=== PATIENT | female | born 1980 | race African-American/Black ===

== ENCOUNTER 2019-09-11 16:26 | Inpatient (IN) | payer MEDICAID, SELFPAY ==
--- NOTE | ~2019-09-11 | XR_ITS ---
XR chest 1V portable 09/11/2019 17:37 Indication: Chest pain. Sickle cell disease. Procedure: AP portable chest Comparison: Comparison to multiple prior studies sequentially, with oldest reviewed study dated 05/31. Findings: Cardiomegaly. Port catheter tip in the SVC. No acute focal pneumonia, edema or effusion. Chronic interstitial changes in the lung bases. No acute osseous abnormality. Impression: 1: No acute cardiopulmonary disease. No significant change from prior studies. Reviewed, dictated and finalized at location A. Impression: 1: No acute cardiopulmonary disease. No significant change from prior studies.
[2019-09-11 16:47] VITALS: BP 148/90; PULSE 69; RESP 20; TEMP 36.7; O2SAT 100
--- NOTE | 2019-09-11 16:57 | ECG_ITS ---
Measurements Intervals [place] Rate: 69 P: 52 HI: 206 QRS: 28 QRSD: 97 T: 33 QT: 433 QTc: 466 Interpretive Statements SINUS RHYTHM NORMAL ECG Electronically Signed On 09-12-2019 7:08:18 CDT by Ata Ford D.O.
[2019-09-11] MEDS: HYDROMORPHONE HCL 1 MG/ML INJ 2 MG IV PUSH ×4 (17:03→23:31)
[2019-09-11] MEDS: PROCHLORPERAZINE EDISYLATE 10 MG/2 ML VIAL IV PUSH (17:04)
[2019-09-11] MEDS: LACTATED RINGERS 1,000 ML 999 ML IV CONT ×2 (17:04→18:11)
--- NOTE | 2019-09-11 17:10 | ED.GENADULT ---
HPI - General Adult General Chief complaint: Unspecified <KERMIT Senior Last Filed: 09/11/19 18:53> Stated complaint: Sickle Cell Crisis <KERMIT Senior Last Filed: 09/11/19 18:53> Time Seen by Provider: 09/11/19 16:43 <KERMIT Senior Last Filed: 09/11/19 18:53> Source: patient <KERMIT Senior Last Filed: 09/11/19 18:53> Mode of arrival: ambulatory <KERMIT Senior Last Filed: 09/11/19 18:53> Limitations: no limitations <KERMIT Senior Last Filed: 09/11/19 18:53> History of Present Illness HPI narrative: Patient is a 39-year-old female who presents noting leg pain and low back pain consistent with her chronic pain crisis secondary to sickle cell disease is followed at [facility] notes that she takes Dilaudid daily and has been doing so without relief. Patient denies any fever chills nausea vomiting urinary symptoms or upper respiratory symptoms. On arrival patient in the room in no distress. <KERMIT Senior Last Filed: 09/11/19 18:53> Related Data Home medications: Home Medications Medication Instructions Recorded Confirmed hydromorphone 8 mg PO Q4H PRN 09/11/19 <KERMIT Senior Last Filed: 09/11/19 18:53> Allergies/adverse reactions: Allergies Allergy/AdvReac Type Severity Reaction Status Date / Time acetaminophen Allergy Mild Rash Verified 06/11/18 21:24 aspirin Allergy Unknown Hives / Verified 06/11/18 21:24 Red Face Fish Containing Products Allergy Unknown Unknown Verified 09/11/19 16:55 ibuprofen Allergy Unknown Unknown Verified 09/11/19 16:55 Penicillins Allergy Unknown Unknown Verified 09/11/19 16:55 shellfish derived Allergy Unknown Unknown Verified 09/11/19 16:55 <KERMIT Senior Last Filed: 09/11/19 18:53> Review of Systems Review of Systems: All systems reviewed & are unremarkable except as noted in HPI and below <KERMIT Senior Last Filed: 09/11/19 18:53> PMFSH Past Medical History Medical History: Medical History (Updated 09/11/19 @ 18:53 by Ryan Guillory PA-C) Port-A-Cath in place Sickle cell disease <Ryan Guillory PA-C - Last Filed: 09/11/19 18:53> Social History Social History: Social History (Updated 09/11/19 @ 17:11 by Ryan Guillory PA-C) Smoking status: Never smoker <Ryan Guillory PA-C - Last Filed: 09/11/19 18:53> Exam Narrative: Exam Narrative: GENERAL: Well-appearing, well-nourished, and in no acute distress. HEAD: Normocephalic, atraumatic. EYES: PERRLA and EOMI. ENT: Nares clear, no rhinorrhea or epistaxis. Mucous membranes moist. Oropharynx without tonsillar hypertrophy exudate or other lesions. NECK: Supple. No adenopathy or masses. CHEST: Clear to auscultation. No respiratory distress. No wheezes rales or rhonchi HEART: Regular rate and rhythm. No murmur heard. Normal peripheral pulses. ABDOMEN: Soft, nontender, nondistende. EXTREMITIES: Normal range of motion. No edema. SKIN: Warm, dry, no rash. NEURO: No focal deficits. Alert and oriented x3. Cranial nerves II through XII grossly intact. Normal speech and gait PSYCH: Normal mood and affect. <Ryan Guillory PA-C - Last Filed: 09/11/19 18:53> Course Course Emergency Course: Patient in the room at this time continued to have pain with slight improvement would like to be placed in hospital for pain management patient without high risk changes in the blood work resting comfortably in the room felt appropriate for in-hospital therapy <Ryan Guillory PA-C - Last Filed: 09/11/19 18:53> Consultations Consultation #1: discussed case with hospitalist who is agreed to accept the patient <Ryan Guillory PA-C - Last Filed: 09/11/19 18:53> Date: 09/11/19 <KERMIT Senior Last Filed: 09/11/19 18:53> Time: 18:52 <KERMIT Senior Last Filed: 09/11/19 18:53> Vital Signs Vital sig
[2019-09-11 17:20] LABS: Basophils Percent Auto 0.5 % (0.2-1.2); Eosinophils Percent Auto 0.4 % (0-4.4); Hematocrit 28.9 % (37.0-47.0); Hemoglobin 9.6 g/dL (12.0-15.0); Immature Granulocyte Absolute 0.03 K/mm3 (0.00-0.031); Immature Granulocyte Percent A 0.4 % (0-0.5); Immature Reticulocyte Fraction 39.6 % (3.0-15.9); Lymphocytes Absolute Auto 1.81 K/mm3 (0.9-3.2); Mean Corpuscular HGB Conc 33.2 g/dl (32-36); Mean Corpuscular Hemoglobin 24.6 pg (26-34); Mean Corpuscular Volume 74.1 fl (80-100); Mean Platelet Volume 10.1 fl (7.4-10.4); Monocytes Absolute Auto 0.9 K/mm3 (0.1-0.6); Monocytes Percent Auto 11.3 % (2.6-8.5); Neutrophils Absolute Auto 5.1 K/mm3 (1.3-6.7); Neutrophils Percent Auto 64.4 % (45.5-73.1); Nucleated Red Blood Cells Absolute Auto 0.1 K/mm3 (0.0-0.012); Platelet Count Result 499 k/mm3 (150-375); Red Cell Distribution Width 20.2 % (11.5-14.5); Reticulocyte Hemoglobin Conten 29.1 pg (28.2-35.7); Reticulocyte Percent 5.25 % (0.7-4.3); White Blood Count 7.9 K/mm3 (4.5-10.0)
[2019-09-11 17:23] LABS: Alanine Aminotransferase 19 U/L (4-35); Albumin Level 4.8 g/dL (3.5-5.1); Alkaline Phosphatase 137 U/L (38-126); Aspartate Amino Transferase 30 U/L (14-36); Bilirubin,Total 1.7 mg/dL (0.2-1.3); Blood Urea Nitrogen 7 mg/dL (7-17); Calcium 9.6 mg/dL (8.4-10.2); Carbon Dioxide 23 mmol/L (22-30); Chloride 106 mmol/L (98-107); Estimated CRCL calculation 122 ml/min; Estimated Glomerular Filt Rate > 60; Glucose 93 mg/dL (65-105); Lactate Dehydrogenase 537 U/L (313-618); Potassium 3.7 mmol/L (3.4-5.0); Sodium 138 mmol/L (137-145)
[2019-09-11 17:24] LABS: Add Urine Microscopic? YES; Appearance Urine Cloudy (Clear); Bacteria Urine 2+ /hpf; Bilirubin Urine Negative (Negative); Blood Urine Negative (Negative); Color Urine Yellow (Yellow); Glucose Urine UA Negative (Negative); Ketones Urine Negative (Negative); Leukocyte Esterase Ur Negative LEU/UL (Negative); Mucus Urine Rare /lpf; Nitrate Urine Negative (Negative); Protein Urine Negative (Negative); RBC Urine 0-2 /hpf (0-2); Specific Grav Ur 1.013 (1.001-1.035); Squamous Epithelial Cell Urine Many /hpf (Few); WBC Urine 0-3 /hpf
--- NOTE | 2019-09-11 17:54 | PC.NURSE ---
Pt called out and stated she was in pain. Informed RODRIGO [place] of this
[2019-09-11 19:26] VITALS: BP 130/80; PULSE 66; RESP 20; O2SAT 100
[2019-09-11 20:00] VITALS: BP 155/81; PULSE 52; RESP 20; TEMP 36.4; O2SAT 100
--- NOTE | 2019-09-11 20:36 | ADMGEN ---
This patient, Natividad Lowe, was admitted to Medical Room 258-. Patient/family oriented to hospital policies and general routines including ID bracelet, bed and alarms, visiting hours, pain management, procedures, bathroom and other care routines, personal items, smoking policy, room service/diet, and visiting hours. Valuables list has been completed. Information on how to activate the Rapid Response Team has been discussed. Patient/Family are encouraged to report perceived risks to care and to ask questions if they do not understand what they are told or what they should do.
[2019-09-11 20:54] VITALS: BMI 34.7
[2019-09-11] MEDS: FAMOTIDINE 20 MG/2 ML VIAL IV PUSH (21:08)
[2019-09-11] MEDS: HYDROMORPHONE HCL 1 MG/ML INJ IV PUSH (21:13)
[2019-09-11] MEDS: LACTATED RINGERS 1,000 ML 125 ML IV CONT (21:13)
[2019-09-12] VITALS: BP 123/65; PULSE 65; RESP 18; TEMP 36.3; O2SAT 97
[2019-09-12] MEDS: HYDROMORPHONE HCL 1 MG/ML INJ 2 MG IV PUSH ×3 (01:43→05:37)
[2019-09-12 04:00] VITALS: BP 133/77; PULSE 56; RESP 20; TEMP 36.1; O2SAT 96
[2019-09-12] MEDS: LACTATED RINGERS 1,000 ML 125 ML IV CONT ×3 (04:50→20:09)
--- NOTE | 2019-09-12 06:30 | PM.IMHP ---
H&P: HPI History of Present Illness Chief complaint: Sickle cell pain crisis Narrative: Date and time of patient contact: 09/12/2019 at 6:30 a.m. Natividad Lowe is a 39 year old female with a past medical history of sickle cell (SS) disease who presented To the ER with pain in her low back hips and legs consistent with her usual sickle cell crisis. The patient reports that she has been doing extremely well with her sickle cell disease and had not been admitted to hospital at all since October 2017 and has not been evaluated in the ER since May 2018. She reports that she decreased her soda intake from the the greater than 6 sodas a day down to 1 soda a day. Since decreasing her soda intake she has had decreased pain and decreased issues with constipation. She has also incidentally lost a little bit of weight. She reports that her brother due to a gunshot wound within the last 3 days. She thinks that the stress of that situation has contributed to her sickle cell pain. She admits she may not be drinking as much water as usual. She denies any cough, congestion, shortness of breath, chest pain, nausea, vomiting, recent ill contacts, COVID-19 exposure, or other symptoms. Her pain is been unrelenting despite her home Dilaudid. She denies any dysuria or hematuria. Review of Systems Review of Systems: Narrative: 12 systems were reviewed with pertinent positives and negatives per HPI. Except as documented in the HPI, all other systems were reviewed and are negative. [facility] Past Medical History Medical History (Updated 09/12/19 @ 07:50 by Crystal Hernandez DO) Asthma Avascular necrosis of bone of hip Avascular necrosis of bone of shoulder Essential hypertension Moderate pulmonary arterial systolic hypertension Noted on echocardiogram from June 2015 with a RVSP of 53 normal ejection fraction is 64% Sickle cell disease Surgical History Surgical History (Updated 09/12/19 @ 07:27 by Crystal Hernandez DO) History of tubal ligation Hx of tonsillectomy Port-A-Cath in place She originally a Port-A-Cath in place in her left chest that became infected she subsequently had that 1 replaced and now has a port in her right chest since December 2015 Family History Family History (Updated 09/12/19 @ 07:29 by Crystal Hernandez DO) Mother Diabetes mellitus Sickle cell trait Hypertension Father Sickle cell trait Sibling Sickle cell trait Social History Social History (Updated 09/12/19 @ 07:38 by Crystal Hernandez DO) Social History: Smoking status: Never smoker Alcohol intake: never Substance use: never Living arrangements: with family Occupation/Education: student Additional occupation/education comments: 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 Spiritual care concerns: No Meds Home Medications and Allergies Home Medications Medication Instructions Recorded Confirmed Type folic acid 1 mg PO DAILY 09/11/19 09/11/19 History hydromorphone 8 mg PO Q4H PRN 09/11/19 09/11/19 History hydroxyurea (sickle cell) 1,000 mg PO DAILY 09/11/19 09/11/19 History Allergies Allergy/AdvReac Type Severity Reaction Status Date / Time acetaminophen Allergy Mild Rash Verified 06/11/18 21:24 aspirin Allergy Unknown Hives / Verified 06/11/18 21:24 Red Face Fish Containing Products Allergy Unknown Unknown Verified 09/11/19 16:55 ibuprofen Allergy Unknown Unknown Verified 09/11/19 16:55 Penicillins Allergy Unknown Unknown Verified 09/11/19 16:55 shellfish derived Allergy Unknown Unknown Verified 09/11/19 16:55 Vital Signs Vital Signs - 24 hr 09/11/19 16:47 09/11/19 19:26 09/11/19 20:00 Temperature 98.0 F 97.5 F L Pulse Rate 69 66 52 L Respiratory Rate 20 20 20 Blood Pressure 148/90 H 130/80 155/81 H Pulse Oximetry 100 100 100 09/12/19 00:00 09/12/19 04:00 Temperature 97.3 F L 96.9 F L Pulse Rate 65 56 L Respiratory Rate 18 20 Blood Pressure 123/65 133/7
[2019-09-12 07:13] LABS: Basophils Absolute Auto 0.1 K/mm3 (0.0-0.1); Basophils Percent Auto 0.8 % (0.2-1.2); Eosinophils Absolute Auto 0.2 K/mm3 (0-0.3); Eosinophils Percent Auto 1.9 % (0-4.4); Hematocrit 25.6 % (37.0-47.0); Hemoglobin 8.5 g/dL (12.0-15.0); Immature Granulocyte Absolute 0.03 K/mm3 (0.00-0.031); Immature Granulocyte Percent A 0.4 % (0-0.5); Lymphocytes Absolute Auto 3.21 K/mm3 (0.9-3.2); Lymphocytes Percent Auto 41.3 % (18.3-44.2); Mean Corpuscular HGB Conc 33.2 g/dl (32-36); Mean Corpuscular Hemoglobin 24.9 pg (26-34); Mean Corpuscular Volume 74.9 fl (80-100); Mean Platelet Volume 9.7 fl (7.4-10.4); Monocytes Absolute Auto 1.1 K/mm3 (0.1-0.6); Neutrophils Absolute Auto 3.2 K/mm3 (1.3-6.7); Neutrophils Percent Auto 41.6 % (45.5-73.1); Nucleated Red Blood Cells Absolute Auto 0.1 K/mm3 (0.0-0.012); Nucleated Red Blood Cells Perc 0.8 % (0.0-0.2); Platelet Count Result 440 k/mm3 (150-375); Red Blood Count 3.42 M/mm3 (4.2-5.4); Red Cell Distribution Width 19.6 % (11.5-14.5); White Blood Count 7.8 K/mm3 (4.5-10.0)
[2019-09-12 07:21] LABS: Blood Urea Nitrogen 6 mg/dL (7-17); Calcium 8.9 mg/dL (8.4-10.2); Carbon Dioxide 26 mmol/L (22-30); Chloride 103 mmol/L (98-107); Estimated CRCL calculation 120 ml/min; Estimated Glomerular Filt Rate > 60; Glucose 77 mg/dL (65-105); Potassium 3.6 mmol/L (3.4-5.0); Sodium 136 mmol/L (137-145)
[2019-09-12 07:36] LABS: Bilirubin,Total 1.8 mg/dL (0.2-1.3)
[2019-09-12] MEDS: HYDROMORPHONE HCL 1 MG/ML INJ 3 MG IV PUSH ×6 (08:03→23:00)
[2019-09-12] MEDS: HYDROXYUREA (*CHEMO) 500 MG CAPSULE 1000 MG PO (08:04)
[2019-09-12] MEDS: FOLIC ACID 1 MG TABLET PO (08:04)
[2019-09-12 10:00] VITALS: BP 143/75; PULSE 74; RESP 16; TEMP 36.2; O2SAT 100
--- NOTE | 2019-09-12 13:12 | PM.IMPN ---
Progress Note: A&P Assessment and Plan (1) Sickle cell pain crisis: Code(s): D57.00 - Hb-SS disease with crisis, unspecified Status: Acute Assessment and Plan: Patient complains of pain in her low back that extends laterally and in bilateral legs. Her pain is better controlled today and she rates it 8/10. There is no evidence of acute chest syndrome. Percent retic is elevated. Total bilirubin is elevated. Continue IV Dilaudid 3 mg Q3H for pain. Narcan has been ordered. Wean down pain medication as soon as clinically appropriate Continue oral Benadryl as needed Continue IV fluids Continue to monitor CBC and retic count. Continue folic acid and hydroxyurea (2) Essential hypertension: Code(s): I10 - Essential (primary) hypertension Status: Acute Assessment and Plan: Patient has a history of hypertension but is not on any antihypertensive medications. Blood pressures were elevated at presentation. Upon review today, blood pressures are acceptable in normal range. Continue to monitor blood pressures (3) Moderate pulmonary arterial systolic hypertension: Code(s): I27.21 - Secondary pulmonary arterial hypertension Status: Acute Assessment and Plan: On review of echo from June 2015, she was noted to have a right ventricular systolic pressure of 53 mmHg. Her EF was 64%. Apnea link has been ordered for tonight to evaluate for EMMANUEL as cause of pulmonary HTN She will also benefit from formal outpatient sleep study (4) DVT prophylaxis: Code(s): Z29.9 - Encounter for prophylactic measures, unspecified Status: Acute Assessment and Plan: Prophylactic Lovenox was ordered for DVT prophylaxis, however patient refused injection. Will add SCDs for prophylaxis as pharmacologic was refused Subjective Date/time seen: 09/12/19 13:12 Interval history: Date of service: 09/12/2019 She reports she is feeling well today and her pain is more controlled at this time. She continues to endorse pain that spreads laterally across her lower back and down to bilateral legs. She describes this pain as an achiness and rates 8/10. She denies pain in her upper extremities, chest, or abdomen. She denies headache. She has no shortness of breath, LEWIS, or palpitations. She has been ambulating to the restroom without difficulty and this does not cause any increased pain. She is urinating regularly without dysuria or hematuria. She had a regular soft, formed bowel movement this morning. Her appetite has been good. She did not sleep last night as she was in pain but was able to get some rest this morning. Review of Systems Review of Systems: Narrative: A 12 point review of systems was reviewed with pertinent positives and negatives as per HPI. Exam Narrative: Exam Narrative: Ms. Lowe is examined alone today. She is a 39-year-old female who is lying supine in bed. She appears comfortable and is in no acute respiratory distress. HR 56, BP 133/77, R 20, T 96.9?, 96% on room air Neuro: awake, alert and oriented x4, speech clear, no focal neuro deficits noted HEENMT: normocephalic, atraumatic, EOMI, sclerae anicteric, moist oral mucosa, normal oropharynx Neck: supple, no lymphadenopathy Chest: Port-A-Cath in place on right chest wall Respiratory: clear to auscultation bilaterally, normal respiratory effort without accessory muscle use Cardio: regular rate, regular rhythm, normal S1 and S2 Abdomen: normal to inspection, slightly protuberant, normoactive bowel sounds, soft, nontender to palpation Back: Normal to inspection, no paraspinal tenderness, nontender to palpation Extremities: BLE without edema, erythema, or pain to palpation, dorsal pedis pulses palpable bilaterally, brisk capillary refill Skin: no rashes or lesions, warm and dry Psych: Pleasant and cooperative, normal mood and affect, judgment and insight intact Objective Data Vital Signs
[2019-09-12 14:00] VITALS: BP 104/54; PULSE 67; RESP 15; TEMP 36.8; O2SAT 100
[2019-09-12] MEDS: CENTRAL LINE FLUSH 10 ML IV PUSH ×2 (14:02→20:09)
[2019-09-12 19:06] VITALS: BP 112/60; PULSE 75; RESP 18; TEMP 36.7; O2SAT 100
[2019-09-12 20:00] VITALS: BP 154/76; PULSE 71; RESP 20; TEMP 36.2; O2SAT 100
[2019-09-13] MEDS: HYDROMORPHONE HCL 1 MG/ML INJ 3 MG IV PUSH ×7 (02:05→20:07)
[2019-09-13 04:00] VITALS: BP 144/82; PULSE 65; RESP 18; TEMP 36; O2SAT 100
[2019-09-13] MEDS: LACTATED RINGERS 1,000 ML 125 ML IV CONT (05:01)
[2019-09-13] MEDS: CENTRAL LINE FLUSH 10 ML IV PUSH ×3 (05:05→23:05)
[2019-09-13 05:45] LABS: Basophils Absolute Auto 0.1 K/mm3 (0.0-0.1); Basophils Percent Auto 0.8 % (0.2-1.2); Eosinophils Absolute Auto 0.2 K/mm3 (0-0.3); Eosinophils Percent Auto 2.9 % (0-4.4); Hematocrit 26.3 % (37.0-47.0); Hemoglobin 8.7 g/dL (12.0-15.0); Immature Granulocyte Absolute 0.03 K/mm3 (0.00-0.031); Immature Granulocyte Percent A 0.4 % (0-0.5); Immature Reticulocyte Fraction 33.3 % (3.0-15.9); Lymphocytes Absolute Auto 2.79 K/mm3 (0.9-3.2); Lymphocytes Percent Auto 37.2 % (18.3-44.2); Mean Corpuscular HGB Conc 33.1 g/dl (32-36); Mean Corpuscular Hemoglobin 24.8 pg (26-34); Mean Corpuscular Volume 74.9 fl (80-100); Mean Platelet Volume 9.5 fl (7.4-10.4); Monocytes Percent Auto 13.2 % (2.6-8.5); Neutrophils Absolute Auto 3.4 K/mm3 (1.3-6.7); Neutrophils Percent Auto 45.5 % (45.5-73.1); Nucleated Red Blood Cells Absolute Auto 0.1 K/mm3 (0.0-0.012); Nucleated Red Blood Cells Perc 1.2 % (0.0-0.2); Platelet Count Result 465 k/mm3 (150-375); Red Blood Count 3.51 M/mm3 (4.2-5.4); Red Cell Distribution Width 19.8 % (11.5-14.5); Reticulocyte Hemoglobin Conten 28.6 pg (28.2-35.7); Reticulocyte Percent 6.19 % (0.7-4.3); Reticulocytes Absolute 0.22 B/L (32.2-175.7); White Blood Count 7.5 K/mm3 (4.5-10.0)
[2019-09-13 06:01] LABS: Blood Urea Nitrogen 8 mg/dL (7-17); Calcium 8.6 mg/dL (8.4-10.2); Carbon Dioxide 28 mmol/L (22-30); Chloride 101 mmol/L (98-107); Estimated CRCL calculation 120 ml/min; Estimated Glomerular Filt Rate > 60; Glucose 90 mg/dL (65-105); Potassium 3.5 mmol/L (3.4-5.0); Sodium 135 mmol/L (137-145)
[2019-09-13] MEDS: FOLIC ACID 1 MG TABLET PO (08:02)
[2019-09-13] MEDS: HYDROXYUREA (*CHEMO) 500 MG CAPSULE 1000 MG PO (08:02)
--- NOTE | 2019-09-13 12:29 | PM.IMPN ---
Progress Note: A&P Assessment and Plan (1) Sickle cell pain crisis: Code(s): D57.00 - Hb-SS disease with crisis, unspecified Status: Acute Assessment and Plan: Patient complains of pain in her low back that extends laterally. Her leg pain has improved. She rates her pain as 8/10 but states that is improving. There is no evidence of acute chest syndrome. Percent retic is elevated. Total bilirubin is elevated. Continue IV Dilaudid 3 mg Q3H for pain. Narcan has been ordered. Patient is hopeful for discharge tomorrow, therefore will decrease to 2 mg IV Dilaudid this evening, and continue to wean as appropriate. Continue oral Benadryl as needed Discontinue IV fluids as patient has been adequately rehydrated and tolerating oral intake Continue to monitor CBC and retic count. Continue folic acid and hydroxyurea (2) Essential hypertension: Code(s): I10 - Essential (primary) hypertension Status: Acute Assessment and Plan: Patient has a history of hypertension but is not on any antihypertensive medications. Blood pressures were elevated at presentation and readings today are also elevated at 144/82. These increases may be related to pain. Continue to monitor blood pressures Consider addition of hydralazine if readings remain elevated (3) Moderate pulmonary arterial systolic hypertension: Code(s): I27.21 - Secondary pulmonary arterial hypertension Status: Acute Assessment and Plan: On review of echo from June 2015, she was noted to have a right ventricular systolic pressure of 53 mmHg. Her EF was 64%. Apnea link was performed on 09/13/2019 which put her in the normal range and at low risk for suspected pathologic breathing disorder. She may still benefit from formal outpatient sleep study as she endorses snoring and daytime fatigue. These findings will require outpatient follow-up with primary care provider. (4) DVT prophylaxis: Code(s): Z29.9 - Encounter for prophylactic measures, unspecified Status: Acute Assessment and Plan: Prophylactic Lovenox was ordered for DVT prophylaxis, however patient refused injection. Continue SCDs for prophylaxis as pharmacologic was refused Subjective Date/time seen: 09/13/19 12:29 Interval history: Date of service: 09/13/2019 She reports she is feeling better today. She continues to rate her pain as an 8/10, but states that it is improving. Pain is now significant only in her back, and her leg pain has improved. She continues to deny upper extremity pain, abdominal pain, or chest pain. She has been ambulating in her room and in the halls and reports she is doing well. Walking does not seem to exacerbate her pain. She is eating well. She slept well last night. She had a regular bowel movement this morning. She denies urinary symptoms. Review of Systems Review of Systems: Narrative: A 12 point review of systems was reviewed with pertinent positives and negatives as per HPI. Exam Narrative: Exam Narrative: Ms. Lowe is examined alone today. She is a 39-year-old female who is lying supine in bed. She appears comfortable and is in no acute respiratory distress. HR sixty-five, BP 144/82, RR 18, T 96.8?, 100% on room air Neuro: awake, alert and oriented x4, speech clear, no focal neuro deficits noted HEENMT: normocephalic, atraumatic, EOMI, sclerae anicteric, moist oral mucosa, normal oropharynx Neck: supple, no lymphadenopathy Chest: Port-A-Cath in place on right chest wall Respiratory: clear to auscultation bilaterally, normal respiratory effort without accessory muscle use Cardio: regular rate, regular rhythm, normal S1 and S2 Abdomen: normal to inspection, slightly protuberant, normoactive bowel sounds, soft, nontender to palpation Back: Normal to inspection, no paraspinal tenderness, nontender to palpation Extremities: BLE without edema, erythema, or pain to palpation, dorsal pedis
[2019-09-13 15:00] VITALS: BP 130/68; PULSE 64; RESP 16; TEMP 37.1; O2SAT 100
[2019-09-13 22:00] VITALS: BP 137/77; PULSE 76; RESP 18; TEMP 36.6; O2SAT 100
[2019-09-13] MEDS: HYDROMORPHONE HCL 1 MG/ML INJ 2 MG IV PUSH (23:00)
[2019-09-14] MEDS: HYDROMORPHONE HCL 1 MG/ML INJ 3 MG IV PUSH (01:02)
[2019-09-14] MEDS: HYDROMORPHONE HCL 4 MG TABLET 8 MG PO (04:35)
[2019-09-14 06:00] VITALS: BP 130/73; PULSE 76; RESP 18; TEMP 36.6; O2SAT 100
[2019-09-14] MEDS: CENTRAL LINE FLUSH 10 ML IV PUSH ×3 (06:15→22:43)
[2019-09-14] MEDS: HYDROMORPHONE HCL 1 MG/ML INJ 2 MG IV PUSH (06:29)
[2019-09-14 06:32] LABS: Basophils Absolute Auto 0.1 K/mm3 (0.0-0.1); Basophils Percent Auto 0.8 % (0.2-1.2); Eosinophils Absolute Auto 0.3 K/mm3 (0-0.3); Hematocrit 26.8 % (37.0-47.0); Hemoglobin 8.7 g/dL (12.0-15.0); Immature Granulocyte Absolute 0.03 K/mm3 (0.00-0.031); Immature Granulocyte Percent A 0.5 % (0-0.5); Lymphocytes Absolute Auto 2.46 K/mm3 (0.9-3.2); Lymphocytes Percent Auto 38.3 % (18.3-44.2); Mean Corpuscular HGB Conc 32.5 g/dl (32-36); Mean Corpuscular Hemoglobin 24.3 pg (26-34); Mean Corpuscular Volume 74.9 fl (80-100); Mean Platelet Volume 9.5 fl (7.4-10.4); Monocytes Absolute Auto 0.9 K/mm3 (0.1-0.6); Monocytes Percent Auto 13.2 % (2.6-8.5); Neutrophils Absolute Auto 2.8 K/mm3 (1.3-6.7); Neutrophils Percent Auto 43.2 % (45.5-73.1); Nucleated Red Blood Cells Absolute Auto 0.1 K/mm3 (0.0-0.012); Nucleated Red Blood Cells Perc 1.1 % (0.0-0.2); Platelet Count Result 480 k/mm3 (150-375); Red Blood Count 3.58 M/mm3 (4.2-5.4); Red Cell Distribution Width 19.1 % (11.5-14.5); White Blood Count 6.4 K/mm3 (4.5-10.0)
[2019-09-14 06:44] LABS: Alanine Aminotransferase 13 U/L (4-35); Albumin Level 4.1 g/dL (3.5-5.1); Alkaline Phosphatase 101 U/L (38-126); Aspartate Amino Transferase 22 U/L (14-36); Bilirubin,Total 1.3 mg/dL (0.2-1.3); Blood Urea Nitrogen 7 mg/dL (7-17); Calcium 8.8 mg/dL (8.4-10.2); Carbon Dioxide 29 mmol/L (22-30); Chloride 101 mmol/L (98-107); Estimated CRCL calculation 141 ml/min; Estimated Glomerular Filt Rate > 60; Glucose 83 mg/dL (65-105); Potassium 3.6 mmol/L (3.4-5.0); Sodium 134 mmol/L (137-145)
--- NOTE | 2019-09-14 07:46 | PC.NURSE ---
Patient crying and asking to speak to hospitalist. Jeanette on the floor and is in to see patient.
--- NOTE | 2019-09-14 07:59 | PM.IMPN ---
Progress Note: A&P Assessment and Plan (1) Sickle cell pain crisis: Code(s): D57.00 - Hb-SS disease with crisis, unspecified Status: Acute Assessment and Plan: Patient complains of pain in her low back that extends laterally to her bilateral legs. There is no evidence of acute chest syndrome. Percent retic is elevated. Total bilirubin initially elevated but has declined to 1.3. Patient required increased IV pain medication overnight as her pain had been uncontrolled. She had previously been decreased from 3 mg to 2 mg IV Dilaudid as she was hopeful to discharge today, however her pain is now 10/10. Resume IV Dilaudid 3 mg Q4H for pain. Narcan has been ordered Wean as soon as clinically appropriate. Continue oral Benadryl as needed IV fluids discontinued on 09/13/2019 as patient has been adequately rehydrated and tolerating oral intake Continue to monitor CBC and retic count. Continue folic acid and hydroxyurea Continue supportive therapy including heating pad for back, positional changes, and ambulation (2) Emotional stress: Code(s): R45.7 - State of emotional shock and stress, unspecified Status: Acute Assessment and Plan: Patient is very tearful upon my visit today. I spent extensive time talking with her about the recent loss of her brother who was murdered just several days ago. She feels strongly that her emotional stress and grief are contributing to her pain symptoms. She tells me that she is trying to be strong for her family, and therefore believes she is trying to bennett her healing process and is putting too much pressure on herself. She denies depression or suicidal ideation. I encouraged the patient to take time to focus on her own healing today. I encouraged her to identify someone she could talk to about her emotional pain, and she plans to call her intelligence officer basic today. (3) Essential hypertension: Code(s): I10 - Essential (primary) hypertension Status: Acute Assessment and Plan: Patient has a history of hypertension but is not on any antihypertensive medications. Blood pressures were elevated at presentation but have improved. Initial elevated readings were likely related to pain. Blood pressure evaluated today and stable at 130/73. Continue to monitor blood pressures (4) Moderate pulmonary arterial systolic hypertension: Code(s): I27.21 - Secondary pulmonary arterial hypertension Status: Acute Assessment and Plan: On review of echo from June 2015, she was noted to have a right ventricular systolic pressure of 53 mmHg. Her EF was 64%. Apnea link was performed on 09/13/2019 which put her in the normal range and at low risk for suspected pathologic breathing disorder. She may still benefit from formal outpatient sleep study as she endorses snoring and daytime fatigue. These findings will require outpatient follow-up with primary care provider. (5) DVT prophylaxis: Code(s): Z29.9 - Encounter for prophylactic measures, unspecified Status: Acute Assessment and Plan: Prophylactic Lovenox was ordered for DVT prophylaxis, however patient refused injection. Continue SCDs for prophylaxis as pharmacologic was refused Subjective Date/time seen: 09/14/19 07:59 Interval history: Date of service: 09/14/2019 I was called to the patient's room today because she was very upset and had been crying for a good portion of the morning. Her pain had become uncontrolled throughout the night and she required more pain medications and she states she is still very uncomfortable. She is rating her pain as a 10/10 now. Her pain is in her back and her legs. She is concerned because she very much wants to go home to be with her family, but she does not feel that she can go home when her pain is this significant. She feeling this way has caused her to have decreased appetite. She was not able to sleep well last night due to p
[2019-09-14 08:12] LABS: Immature Reticulocyte Fraction 22.7 % (3.0-15.9); Reticulocyte Hemoglobin Conten 26.4 pg (28.2-35.7); Reticulocyte Percent 4.65 % (0.7-4.3); Reticulocytes Absolute 0.16 B/L (32.2-175.7)
[2019-09-14] MEDS: HYDROXYUREA (*CHEMO) 500 MG CAPSULE 1000 MG PO (09:08)
[2019-09-14] MEDS: FOLIC ACID 1 MG TABLET PO (09:08)
[2019-09-14] MEDS: HYDROMORPHONE HCL 2 MG/ML VIAL 3 MG IV PUSH ×4 (10:37→22:49)
[2019-09-14 14:00] VITALS: BP 125/69; PULSE 73; RESP 16; TEMP 36.9; O2SAT 100
--- NOTE | 2019-09-14 14:48 | PC.NURSE ---
Nursing care given over to Sheila Spence RN. Report given.
[2019-09-14 22:00] VITALS: BP 129/76; PULSE 80; RESP 18; TEMP 36.6; O2SAT 100
[2019-09-14] MEDS: FAMOTIDINE 20 MG/2 ML VIAL IV PUSH (22:43)
[2019-09-15] MEDS: HYDROMORPHONE HCL 2 MG/ML VIAL 3 MG IV PUSH (03:12)
[2019-09-15] MEDS: CENTRAL LINE FLUSH 10 ML IV PUSH (05:33)
[2019-09-15 05:44] VITALS: BP 107/46; PULSE 79; RESP 20; TEMP 36.5; O2SAT 100
[2019-09-15 05:56] LABS: Basophils Absolute Auto 0.1 K/mm3 (0.0-0.1); Basophils Percent Auto 0.7 % (0.2-1.2); Eosinophils Absolute Auto 0.2 K/mm3 (0-0.3); Eosinophils Percent Auto 1.7 % (0-4.4); Hematocrit 28.4 % (37.0-47.0); Hemoglobin 9.4 g/dL (12.0-15.0); Immature Granulocyte Absolute 0.05 K/mm3 (0.00-0.031); Immature Granulocyte Percent A 0.6 % (0-0.5); Lymphocytes Absolute Auto 2.87 K/mm3 (0.9-3.2); Lymphocytes Percent Auto 32.4 % (18.3-44.2); Mean Corpuscular HGB Conc 33.1 g/dl (32-36); Mean Corpuscular Hemoglobin 24.8 pg (26-34); Mean Corpuscular Volume 74.9 fl (80-100); Mean Platelet Volume 9.7 fl (7.4-10.4); Monocytes Absolute Auto 1.4 K/mm3 (0.1-0.6); Monocytes Percent Auto 15.4 % (2.6-8.5); Neutrophils Absolute Auto 4.4 K/mm3 (1.3-6.7); Neutrophils Percent Auto 49.2 % (45.5-73.1); Nucleated Red Blood Cells Absolute Auto 0.1 K/mm3 (0.0-0.012); Nucleated Red Blood Cells Perc 0.9 % (0.0-0.2); Platelet Count Result 518 k/mm3 (150-375); Red Blood Count 3.79 M/mm3 (4.2-5.4); Red Cell Distribution Width 19.2 % (11.5-14.5); White Blood Count 8.9 K/mm3 (4.5-10.0)
[2019-09-15 06:06] LABS: Alanine Aminotransferase 13 U/L (4-35); Albumin Level 4.5 g/dL (3.5-5.1); Alkaline Phosphatase 97 U/L (38-126); Aspartate Amino Transferase 24 U/L (14-36); Bilirubin,Total 1.1 mg/dL (0.2-1.3); Blood Urea Nitrogen 9 mg/dL (7-17); Calcium 8.9 mg/dL (8.4-10.2); Carbon Dioxide 27 mmol/L (22-30); Chloride 102 mmol/L (98-107); Estimated CRCL calculation 120 ml/min; Estimated Glomerular Filt Rate > 60; Glucose 83 mg/dL (65-105); Potassium 3.5 mmol/L (3.4-5.0); Sodium 137 mmol/L (137-145)
[2019-09-15] MEDS: HYDROMORPHONE HCL 2 MG/ML VIAL IV PUSH (08:02)
[2019-09-15] MEDS: HYDROXYUREA (*CHEMO) 500 MG CAPSULE 1000 MG PO (08:05)
[2019-09-15] MEDS: FOLIC ACID 1 MG TABLET PO (09:09)
--- NOTE | 2019-09-15 10:28 | PM.DS ---
DS: Admitting Diagnosis Admitting Diagnosis Admitting Diagnosis: Hb-SS disease with crisis, unspecified DS: Discharge Diagnosis Discharge Diagnosis (1) Sickle cell pain crisis: Code(s): D57.00 - Hb-SS disease with crisis, unspecified Status: Acute Assessment and Plan: Patient endorsed pain in her low back that extended laterally to her bilateral legs, initially 10/10 and improved to 6/10. Her reticulocytes were elevated, as was bilirubin. Her H&H was low but remained stable and consistent with baseline. There was no evidence of acute chest syndrome. She was treated with IV Dilaudid which did improve her pain. Pain medication was weaned and patient felt her pain had improved and requested discharge. She will continue her home pain regimen, as well as folic acid, and hydroxyurea. She will follow-up with her doctor in 1-2 weeks. (2) Emotional stress: Code(s): R45.7 - State of emotional shock and stress, unspecified Status: Acute Assessment and Plan: Her brother was killed 3 days prior to her admission related to gang violence. This was extremely distressing for the patient and she was often very tearful. She believed that her emotional stress and grief was contributing to her pain symptoms. She denied depression or suicidal ideation. (3) Essential hypertension: Code(s): I10 - Essential (primary) hypertension Status: Acute Assessment and Plan: Patient has a history of hypertension but is not on any antihypertensive medications. Blood pressures were elevated at presentation, likely due to pain but improved and subsequent readings were at target. (4) Moderate pulmonary arterial systolic hypertension: Code(s): I27.21 - Secondary pulmonary arterial hypertension Status: Acute Assessment and Plan: On review of echo from June 2015, she was noted to have a right ventricular systolic pressure of 53 mmHg. Her EF was 64%. Apnea link was performed on 09/13/2019 which put her in the normal range and at low risk for suspected pathologic breathing disorder. She may still benefit from formal outpatient sleep study at the discretion of PCP as she endorses snoring and daytime fatigue. (5) DVT prophylaxis: Code(s): Z29.9 - Encounter for prophylactic measures, unspecified Status: Acute Assessment and Plan: Prophylactic Lovenox was ordered for DVT prophylaxis, however patient refused injection each morning. Therefore, SCDs were employed for DVT prophylaxis. DS: Summary Hospital Course Reason for hospitalization: Sickle cell pain crisis Hospital Course: Date of admission: 09/11/2019 Date of discharge: 09/15/2019 Natividad Lowe is a 39-year-old female with a past medical history significant for sickle cell disease and hypertension who presented to the emergency department on 09/11/2019 with complaints of low back pain and bilateral leg pain consistent with her prior sickle cell pain crises. She stated that she had not been hospitalized for a pain crisis in over 2 years. Prior to presentation, she had been well controlled on her home p.o. Dilaudid dose of 8 mg every 4 hours as needed. She was admitted to the hospitalist service on 09/11/2019 for pain control. Her pain improved and IV pain medication was weaned. She was feeling better and requested discharge. I discussed worrisome signs and symptoms for which to return with her. I also discussed the importance of using caution with oral narcotic pain medication and taking strictly as prescribed. All of her questions were answered. She was discharged home on the afternoon of 09/15/2019. She left the facility in a cab. Status at Discharge Functional status at discharge: independent ambulation Overall status at discharge: patient is back to baseline Time Spent with Patient Time attestation: Total time spent providing and/or coordinating discharge services: 36 minutes Time spent:
[2019-09-15] MEDS: HEPARIN SOD FLUSH 500 UNITS/5 ML SYRINGE IV PUSH (10:41)
== END 2019-09-15 11:30 | disposition home or self-care (01) | DRG 662 ==
LOC: ANHED 19:02 → ANH2MED 19:57
PROVIDERS: Emergency Medicine Emergency Medical Services; Internal Medicine; Physician Assistant; Admitting Provider Internal Medicine; Emergency Provider Emergency Medicine; Visit Provider Internal Medicine
DX: D57.00 Hb-SS disease with crisis, unspecified (principal); R45.7 State of emotional shock and stress, unspecified; I10 Essential (primary) hypertension; I27.20 Pulmonary hypertension, unspecified; J45.909 Unspecified asthma, uncomplicated; E66.9 Obesity, unspecified; Z68.34 Body mass index [BMI] 34.0-34.9, adult
CPT/HCPCS: 36415; 71045; 80048; 80053; 81001; 82247; 83615; 85025; 85046; 93005; 94762; 96361; 96374; 96375; 96376; 99285; A9270; G0378; J0780; J1170; J1200; J1642; J7120

== ENCOUNTER 2019-10-01 17:21 | Emergency (ER) | payer MEDICAID, SELFPAY ==
[2019-10-01 17:25] VITALS: BP 133/95; PULSE 100; RESP 16; TEMP 36.8; O2SAT 99
[2019-10-01 17:31] VITALS: RESP 14
[2019-10-01 17:38] VITALS: PULSE 100
--- NOTE | 2019-10-01 17:45 | PC.NURSE ---
Pt unhappy that md not giving narcotics. md reports that he spoke to pt's physician and suggested toradol or similar med. pt wishes to leave [facility] at this time. rt port a cath deaccessed and flushed with heparin 100 units and ns 10 cc. dc amb to exit
[2019-10-01 17:50] LABS: Basophils Absolute Auto 0.1 K/mm3 (0.0-0.1); Basophils Percent Auto 0.8 % (0.2-1.2); Eosinophils Absolute Auto 0.3 K/mm3 (0-0.3); Eosinophils Percent Auto 4.3 % (0-4.4); Hematocrit 29.9 % (37.0-47.0); Hemoglobin 9.7 g/dL (12.0-15.0); Immature Granulocyte Absolute 0.03 K/mm3 (0.00-0.031); Immature Granulocyte Percent A 0.4 % (0-0.5); Lymphocytes Absolute Auto 2.65 K/mm3 (0.9-3.2); Mean Corpuscular HGB Conc 32.4 g/dl (32-36); Mean Corpuscular Hemoglobin 24.4 pg (26-34); Mean Corpuscular Volume 75.1 fl (80-100); Mean Platelet Volume 9.7 fl (7.4-10.4); Monocytes Absolute Auto 1.2 K/mm3 (0.1-0.6); Monocytes Percent Auto 16.4 % (2.6-8.5); Neutrophils Absolute Auto 3.1 K/mm3 (1.3-6.7); Neutrophils Percent Auto 42.1 % (45.5-73.1); Nucleated Red Blood Cells Absolute Auto 0.2 K/mm3 (0.0-0.012); Nucleated Red Blood Cells Perc 2.3 % (0.0-0.2); Platelet Count Result 386 k/mm3 (150-375); Red Blood Count 3.98 M/mm3 (4.2-5.4); Red Cell Distribution Width 22.6 % (11.5-14.5); White Blood Count 7.4 K/mm3 (4.5-10.0)
--- NOTE | 2019-10-01 17:52 | ED.GENADULT ---
HPI - General Adult General Chief complaint: Unspecified Stated complaint: SICKLE CELL History of Present Illness HPI narrative: Patient is a 39 y/o female complaining of 10/10, aching back pain and bilateral leg pain since yesterday. There is no alleviating or exacerbating factor. She states that she took her home med of oral Dilaudid and it did not help much. She denies any fever, chill, vomiting or diarrhea. Of note, she has history of Sickle cell-beta thal. She has had multiple ED visits and admission for sickle cell pain. She was seen at [facility] earlier today for similar complaint. Related Data Home Medications Medication Instructions Recorded Confirmed folic acid 1 mg PO DAILY 09/11/19 09/11/19 hydromorphone 8 mg PO Q4H PRN 09/11/19 09/11/19 hydroxyurea (sickle cell) 1,000 mg PO DAILY 09/11/19 09/11/19 Allergies Allergy/AdvReac Type Severity Reaction Status Date / Time ibuprofen Allergy Intermediate Hives Verified 10/01/19 17:36 Penicillins Allergy Intermediate Hives Verified 10/01/19 17:36 acetaminophen Allergy Mild Rash Verified 10/01/19 17:36 aspirin Allergy Unknown Hives / Verified 10/01/19 17:36 Red Face shellfish derived Allergy Unknown Hives Verified 10/01/19 17:36 Review of Systems Constitutional: Constitutional: Denies chills, Denies fever(s), Denies headache(s) and Denies weakness Eyes: Eyes: Denies blurry vision ENT: Denies headache(s) and Denies neck pain Cardiovascular: Cardiovascular: Denies chest pain and Denies dyspnea Respiratory: Respiratory: Denies cough and Denies dyspnea Gastrointestinal: Gastrointestinal: Denies abdominal pain, Denies diarrhea, Denies nausea and Denies vomiting Genitourinary: Genitourinary: Denies hematuria and Denies dysuria Musculoskeletal: Musculoskeletal: Reports back pain and Denies neck pain Comments: leg pain Neurologic: Denies headache(s) and Denies weakness PMFSH Past Medical History Medical History Asthma Avascular necrosis of bone of hip Avascular necrosis of bone of shoulder Essential hypertension Moderate pulmonary arterial systolic hypertension Noted on echocardiogram from June 2015 with a RVSP of 53 normal ejection fraction is 64% Sickle cell disease Surgical History Surgical History History of tubal ligation Hx of tonsillectomy Port-A-Cath in place She originally a Port-A-Cath in place in her left chest that became infected she subsequently had that 1 replaced and now has a port in her right chest since December 2015 Family History Family History Mother Diabetes mellitus Sickle cell trait Hypertension Father Sickle cell trait Sibling Sickle cell trait Social History Social History Social History: Smoking status: Never smoker Alcohol intake: never Substance use: never Additional occupation/education comments: 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 Gender identity (if verbalized by the patient): Female Spiritual care concerns: No Exam Const: General: no acute distress and well developed Orientation/consciousness: oriented to person, oriented to place, oriented to time and patient oriented x3 HENMT: Head: normocephalic Ears: external ears normal General nose exam: Normal external nose present Eyes: General: appearance normal, both eyes and all related structures Conjunctivae: conjunctivae normal Neck: Neck: normal visual inspection and full ROM Chest: Chest palpation & inspection: normal inspection of the chest and no tenderness Resp: Effort & Inspection: normal respiratory effort Auscultation: clear to auscultation bilaterally Cardio: Rate: regular rate Rhythm: regular rhythm GI: GI Palp: No abdominal tenderness and Yes Soft to palpation Skin: Genera
[2019-10-01 18:05] LABS: Alanine Aminotransferase 32 U/L (4-35); Albumin Level 4.6 g/dL (3.5-5.1); Alkaline Phosphatase 150 U/L (38-126); Aspartate Amino Transferase 54 U/L (14-36); Bilirubin,Total 1.6 mg/dL (0.2-1.3); Blood Urea Nitrogen 14 mg/dL (7-17); Calcium 9.3 mg/dL (8.4-10.2); Carbon Dioxide 28 mmol/L (22-30); Chloride 102 mmol/L (98-107); Estimated CRCL calculation 93 ml/min; Estimated Glomerular Filt Rate > 60; Glucose 86 mg/dL (65-105); Potassium 3.9 mmol/L (3.4-5.0); Sodium 138 mmol/L (137-145)
== END 2019-10-01 17:57 | disposition left against medical advice (07) ==
LOC: ANHED 17:39
PROVIDERS: Emergency Provider Emergency Medicine
DX: D57.1 Sickle-cell disease without crisis (principal); J45.909 Unspecified asthma, uncomplicated; I10 Essential (primary) hypertension; M87.9 Osteonecrosis, unspecified; I27.21 Secondary pulmonary arterial hypertension
CPT/HCPCS: 36415; 80053; 85025; 99283

== ENCOUNTER 2019-12-08 19:17 | Emergency (ER) | payer MEDICAID, SELFPAY ==
--- NOTE | ~2019-12-08 | XR_ITS ---
LUMBAR SPINE INDICATION: Low back pain TECHNIQUE: 3 views lumbar spine COMPARISON: None FINDINGS: No fracture, subluxation or dislocation. No evidence for spondylolysis or spondylolisthesi s. Vertebral bodies and disk spaces are preserved. There are cholecystectomy clips. IMPRESSION: 1: No acute abnormality of the lumbar spine identified. Reviewed, dictated and finalized at location A.
--- NOTE | ~2019-12-08 | XR_ITS ---
XR hip BI 2V w AP pelvis 12/08/2019 20:34 Indication: Hip pain. Sickle cell crisis. Procedure: AP pelvis and 2 views each Comparison: No prior studies for comparison. Findings: Subtle sclerosis of the left femoral head, suspicious for osteonecrosis. There are surgical clips overlying the right hip. No acute fracture or traumatic malalignment. Pelvic rings are intact. No significant soft tissue abnormality. No radiopaque foreign bodies. Impression: 1: Subtle asymmetric sclerosis left femoral head, suspicious for osteonecrosis. 2: No acute fracture. Reviewed, dictated and finalized at location A. Impression: 1: Subtle asymmetric sclerosis left femoral head, suspicious for osteonecrosis. 2: No acute fracture.
[2019-12-08 19:22] VITALS: BP 144/84; PULSE 72; RESP 17; TEMP 36.3; O2SAT 97
--- NOTE | 2019-12-08 20:06 | ED.GENADULT ---
HPI - General Adult General Chief complaint: Unspecified Stated complaint: sickle cell pain in legs & back Time Seen by Provider: 12/08/19 20:06 Source: patient Mode of arrival: EMS Limitations: no limitations History of Present Illness HPI narrative: Patient is a 39-year-old female with a history of sickle cell disease who presents for evaluation of bilateral hip pain back pain that started 3 days ago. Patient reports dull, aching pain that originates in her lower back travels down throughout her thighs down into her ankles. She denies any numbness or weakness. She reports pain is consistent with her sickle cell pain. Patient denies any fever, chest pain, cough or shortness of breath. Patient states that she is under quite a bit of stress recently, last month she had 2 brothers that were killed in gang-related shootings, she has obtained custody of 2 children who are 8 and 12 and she is not financially responsible for parenting them. Patient is very tearful, stating this seems to exacerbate her sickle cell crises. She has tried her at home pain regimens without any improvement in her symptoms. Patient denies any dysuria or hematuria. She follows at [facility] hematology clinic. Related Data Home Medications Medication Instructions Recorded Confirmed folic acid 1 mg PO DAILY 09/11/19 09/11/19 hydromorphone 8 mg PO Q4H PRN 09/11/19 09/11/19 hydroxyurea (sickle cell) 1,000 mg PO DAILY 09/11/19 09/11/19 albuterol sulfate 2 puff INHALATION QID PRN 12/08/19 Allergies Allergy/AdvReac Type Severity Reaction Status Date / Time ibuprofen Allergy Intermediate Hives Verified 12/08/19 19:22 Penicillins Allergy Intermediate Hives Verified 12/08/19 19:22 acetaminophen Allergy Mild Rash Verified 12/08/19 19:22 aspirin Allergy Unknown Hives / Verified 12/08/19 19:22 Red Face shellfish derived Allergy Unknown Hives Verified 12/08/19 19:22 Review of Systems Review of Systems: Narrative: CONSTITUTIONAL: Denies fever, chills EYES: Denies visual changes ENT: Denies rhinorrhea, congestion, sore throat, or otalgia. CARDIOVASCULAR: Denies chest pain, denies edema RESPIRATORY: Denies cough or dyspnea. Abdomen: Denies nausea or vomiting, denies abdominal pain GENITOURINARY: Denies dysuria or hematuria. SKIN: Denies rash or itching. MUSCULOSKELETAL: Reports back pain, hip pain, bilateral lower leg pain NEUROLOGIC: Denies headache, numbness, or weakness. PSYCHIATRIC: Reports anxiety and depression PMF Past Medical History Medical History Asthma Avascular necrosis of bone of hip Avascular necrosis of bone of shoulder Essential hypertension Moderate pulmonary arterial systolic hypertension Noted on echocardiogram from June 2015 with a RVSP of 53 normal ejection fraction is 64% Sickle cell disease Surgical History Surgical History History of tubal ligation Hx of tonsillectomy Port-A-Cath in place She originally a Port-A-Cath in place in her left chest that became infected she subsequently had that 1 replaced and now has a port in her right chest since December 2015 Family History Family History Mother Diabetes mellitus Sickle cell trait Hypertension Father Sickle cell trait Sibling Sickle cell trait Social History Social History Social History: Smoking status: Never smoker Alcohol intake: never Substance use: never Additional occupation/education comments: 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 Gender identity (if verbalized by the patient): Female Spiritual care concerns: No Exam Narrative: Exam Narrative: GENERAL: Awake, alert, conversant, tearful HEAD: Normocephalic, atraumatic. EYES: PERRLA and EOMI. ENT: Nares clear, no rhinor
[2019-12-08] MEDS: diphenhydrAMINE HCl INJ 50 MG/ML VIAL 25 MG IV PUSH (20:49)
[2019-12-08 20:58] LABS: Basophils Percent Auto 0.6 % (0.2-1.2); Eosinophils Absolute Auto 0.3 K/mm3 (0-0.3); Eosinophils Percent Auto 4.3 % (0-4.4); Hematocrit 24.4 % (37.0-47.0); Hemoglobin 8.1 g/dL (12.0-15.0); Immature Granulocyte Absolute 0.01 K/mm3 (0.00-0.031); Immature Granulocyte Percent A 0.2 % (0-0.5); Immature Reticulocyte Fraction 24.4 % (3.0-15.9); Lymphocytes Absolute Auto 2.27 K/mm3 (0.9-3.2); Lymphocytes Percent Auto 35.2 % (18.3-44.2); Mean Corpuscular HGB Conc 33.2 g/dl (32-36); Mean Corpuscular Hemoglobin 24.3 pg (26-34); Mean Corpuscular Volume 73.1 fl (80-100); Mean Platelet Volume 10.1 fl (7.4-10.4); Monocytes Absolute Auto 0.8 K/mm3 (0.1-0.6); Monocytes Percent Auto 12.7 % (2.6-8.5); Nucleated Red Blood Cells Absolute Auto 0.1 K/mm3 (0.0-0.012); Nucleated Red Blood Cells Perc 1.2 % (0.0-0.2); Platelet Count Result 445 k/mm3 (150-375); Red Blood Count 3.34 M/mm3 (4.2-5.4); Red Cell Distribution Width 19.7 % (11.5-14.5); Reticulocyte Hemoglobin Conten 25.5 pg (28.2-35.7); Reticulocyte Percent 2.43 % (0.7-4.3); Reticulocytes Absolute 0.08 B/L (32.2-175.7); White Blood Count 6.5 K/mm3 (4.5-10.0)
[2019-12-08] MEDS: SODIUM CHLORIDE 0.9% IV 1,000 ML 999 ML IV CONT (20:58)
[2019-12-08 21:10] LABS: Alanine Aminotransferase 26 U/L (4-35); Albumin Level 4.2 g/dL (3.5-5.1); Alkaline Phosphatase 157 U/L (38-126); Anion Gap 8 mmol/L (8-16); Aspartate Amino Transferase 37 U/L (14-36); Bilirubin,Total 1.4 mg/dL (0.2-1.3); Blood Urea Nitrogen 7 mg/dL (7-17); Calcium 8.9 mg/dL (8.4-10.2); Carbon Dioxide 25 mmol/L (22-30); Chloride 105 mmol/L (98-107); Estimated CRCL calculation 149 ml/min; Estimated Glomerular Filt Rate > 60; Glucose 83 mg/dL (65-105); Lactate Dehydrogenase 570 U/L (313-618); Potassium 3.4 mmol/L (3.4-5.0); Sodium 138 mmol/L (137-145)
[2019-12-08 22:02] LABS: Add Urine Microscopic? YES; Appearance Urine Clear (Clear); Bilirubin Urine Negative (Negative); Blood Urine Negative (Negative); Color Urine Yellow (Yellow); Glucose Urine UA Negative (Negative); Ketones Urine Negative (Negative); Leukocyte Esterase Ur Trace LEU/UL (Negative); Mucus Urine Rare /lpf; Nitrate Urine Negative (Negative); Protein Urine Negative (Negative); RBC Urine 0-2 /hpf (0-2); Specific Grav Ur 1.011 (1.001-1.035); Squamous Epithelial Cell Urine Many /hpf (Few); WBC Urine 0-3 /hpf
[2019-12-08 23:46] VITALS: BP 152/95; PULSE 69; RESP 18; O2SAT 94
--- NOTE | 2019-12-09 00:06 | PC.NURSE ---
pt states she would rather be discharged than admitted at this time. aware.
[2019-12-09] MEDS: SODIUM CHLORIDE 0.9% IV 1,000 ML 125 ML IV CONT (00:13)
[2019-12-09] MEDS: HEPARIN SOD FLUSH 500 UNITS/5 ML SYRINGE (00:28)
[2019-12-09 00:30] VITALS: BP 160/82; PULSE 77; RESP 18; O2SAT 99
== END 2019-12-09 00:30 | disposition home or self-care (01) ==
LOC: ANHED 23:59 → ANH3MED 12-09 05:34
PROVIDERS: Emergency Provider Emergency Medicine; Visit Provider Internal Medicine
DX: D57.00 Hb-SS disease with crisis, unspecified (principal); J45.909 Unspecified asthma, uncomplicated; I10 Essential (primary) hypertension; I27.21 Secondary pulmonary arterial hypertension; M87.9 Osteonecrosis, unspecified
CPT/HCPCS: 36415; 72100; 73521; 80053; 81001; 83615; 85025; 85046; 86850; 86900; 86901; 96361; 96374; 96375; 96376; 99284; J1170; J1200; J7030

== ENCOUNTER 2020-02-14 15:20 | Inpatient (IN) | payer MEDICAID, SELFPAY ==
--- NOTE | ~2020-02-14 | XR_ITS ---
EXAMINATION: XR knee LT 3V DATE: 02/16/2020 19:03 INDICATION: Left knee osteonecrosis. TECHNIQUE: 3 views of left knee were obtained. COMPARISON: None. FINDINGS: Bone alignment is normal. No fracture. There is patchy sclerosis in the visualized portions of femur, tibia, and fibula. Joint spaces are normal. No knee joint effusion. IMPRESSION: 1. Patchy sclerosis in the femur, tibia, and fibula, consistent with osteonecrosis from sickle cell d isease. Reviewed, dictated and finalized at location A. IC RELATIONS COORDINATOR IMPRESSION: 1. Patchy sclerosis in the femur, tibia, and fibula, consistent with osteonecro sis from sickle cell disease.
--- NOTE | ~2020-02-14 | XR_ITS ---
EXAMINATION: XR hip BI 2V w AP pelvis DATE: 02/16/2020 19:03 INDICATION: Osteonecrosis. Sickle cell disease. TECHNIQUE: An anteroposterior view of the pelvis and 2 views of each hip were obtained. COMPARISON: Pelvis and hip radiographs 12/04/2019 FINDINGS: Bone alignment is normal. No fracture. There is patchy sclerosis in proximal left femur inc luded the superior aspect of the femoral head, consistent with osteonecrosis. There is patchy scleros is in proximal right femur including the junction of the femoral head and neck, consistent with osteo necrosis. There is mild osteoarthritis of the hips. Surgical clips overlie right hip. IMPRESSION: 1. Sclerosis in the proximal femora, consistent with osteonecrosis from sickle cell disease. 2. Mild osteoarthritis of the hips. Reviewed, dictated and finalized at location A. LER RUNNER
--- NOTE | ~2020-02-14 | XR_ITS ---
EXAMINATION: XR knee RT 3V DATE: 02/16/2020 15:04 INDICATION: Right knee pain. TECHNIQUE: 3 views of right knee were obtained. COMPARISON: None. FINDINGS: Bone alignment is normal. No fracture. There are patchy areas of sclerosis in the distal fe mur and proximal tibia, consistent with osteonecrosis. Joint spaces are normal. No knee joint effusio n. IMPRESSION: 1. 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 Reviewed, dictated and finalized at location A. OR ANDROID SOFTWARE ENGINEER IMPRESSION: 1. Patchy sclerosis in the distal femur and proximal tibia, consistent with ost eonecrosis from sickle cell disease.
--- NOTE | ~2020-02-14 | XR_ITS ---
XR chest 1V portable 02/14/2020 16:45 Indication: Asthma. History of sickle cell disease. Procedure: AP portable chest Comparison: Comparison to multiple prior studies sequentially, with oldest reviewed study dated 02/14. Findings: Cardiomegaly. Patchy bilateral infiltrates with basilar predominance. No significant pleura l effusion or pneumothorax. Portacatheter tip in the SVC. Impression: 1: Patchy bilateral infiltrates with basilar predominance which may reflect pneumonia or mild edema. Reviewed, dictated and finalized at location A. Impression: 1: Patchy bilateral infiltrates with basilar predominance which may reflect pne umonia or mild edema.
--- NOTE | ~2020-02-14 | US_ITS ---
EXAMINATION: US venous doppler [facility] DATE: 02/17/2020 09:45 INDICATION: Bilateral lower limb pain and swelling. Sickle cell crisis. TECHNIQUE: Grayscale ultrasound images without and with compression and Doppler ultrasound images of the bilateral lower extremity veins were obtained. COMPARISON: None. FINDINGS: The visualized portions of right common femoral vein, profunda (deep) femoral vein, femoral vein, pop liteal vein, posterior tibial veins, peroneal veins, gastrocnemius vein and greater saphenous vein ou tflow are patent. The visualized portions of left common femoral vein, profunda femoral vein, femoral veins, popliteal vein, posterior tibial veins, peroneal veins, gastrocnemius vein, soleus vein and greater saphenous v ein outflow are patent. IMPRESSION: 1. No deep venous thrombosis in either lower limb. Reviewed, dictated and finalized at location A. OFF SAWYER
[2020-02-14 15:23] VITALS: PULSE 101; RESP 18; TEMP 37.1; O2SAT 100
--- NOTE | 2020-02-14 15:53 | ECG_ITS ---
Measurements Intervals [place] Rate: 86 P: 47 NJ: 214 QRS: 29 QRSD: 93 T: 13 QT: 395 QTc: 474 Interpretive Statements SINUS RHYTHM WITH FIRST DEGREE AV BLOCK MINIMAL Q WAVES- HIGH LATERAL LEADS ABNORMAL ECG Electronically Signed On 02-15-2020 7:10:48 CHILD PSYCHOMETRIST by Ata Ford D.O.
[2020-02-14] MEDS: LACTATED RINGERS 1,000 ML 999 ML IV CONT ×2 (16:12→17:00)
[2020-02-14] MEDS: HYDROmorphone HCL INJ (*CRX) 1 MG/ML SYR 2 MG IV PUSH ×2 (16:12→17:00)
--- NOTE | 2020-02-14 16:34 | ED.GENADULT ---
HPI - General Adult General Chief complaint: Extremity Problem,Nontraumatic Stated complaint: sickle cell crisis Time Seen by Provider: 02/14/20 15:59 Source: patient and old records reviewed Mode of arrival: ambulatory Limitations: no limitations History of Present Illness HPI narrative: Patient is a 40-year-old female who presents for EMS for left shoulder pain bilateral lower leg pain and lumbar back pain with history of sickle cell disease similar occurrences in the past has been compliant with her home medications. Patient with similar occurrences in the past denies recent illness injury or trauma is followed by heme[facility]onc at [facility] and has been compliant with her visits and medications historically she notes Related Data Home Medications Medication Instructions Recorded Confirmed folic acid 1 mg PO DAILY 09/11/19 09/11/19 hydromorphone 8 mg PO Q4H PRN 09/11/19 09/11/19 hydroxyurea (sickle cell) 1,000 mg PO DAILY 09/11/19 09/11/19 albuterol sulfate 2 puff INHALATION QID PRN 12/08/19 Allergies Allergy/AdvReac Type Severity Reaction Status Date / Time ibuprofen Allergy Intermediate Hives Verified 12/08/19 19:22 Penicillins Allergy Intermediate Hives Verified 12/08/19 19:22 acetaminophen Allergy Mild Rash Verified 12/08/19 19:22 aspirin Allergy Unknown Hives / Verified 12/08/19 19:22 Red Face shellfish derived Allergy Unknown Hives Verified 12/08/19 19:22 Review of Systems Review of Systems: All systems reviewed & are unremarkable except as noted in HPI and below PMFSH Past Medical History Medical History (Updated 02/14/20 @ 20:21 by Ryan Guillory PA-C) Asthma Avascular necrosis of bone of hip Avascular necrosis of bone of shoulder Essential hypertension Moderate pulmonary arterial systolic hypertension Noted on echocardiogram from June 2015 with a RVSP of 53 normal ejection fraction is 64% Sickle cell disease Surgical History Surgical History History of tubal ligation Hx of tonsillectomy Port-A-Cath in place She originally a Port-A-Cath in place in her left chest that became infected she subsequently had that 1 replaced and now has a port in her right chest since December 2015 Family History Family History Mother Diabetes mellitus Sickle cell trait Hypertension Father Sickle cell trait Sibling Sickle cell trait Social History Social History Smoking status: Never smoker Alcohol intake: never Substance use: never Additional occupation/education comments: 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 Gender identity (if verbalized by the patient): Female Spiritual care concerns: No Exam Narrative: Exam Narrative: GENERAL: Well-appearing, well-nourished, and in no acute distress. HEAD: Normocephalic, atraumatic. EYES: PERRLA and EOMI. ENT: Nares clear, no rhinorrhea or epistaxis. Mucous membranes moist. CHEST: Clear to auscultation. No respiratory distress. No wheezes rales or rhonchi HEART: Regular rate and rhythm. No murmur heard. Normal peripheral pulses. ABDOMEN: Soft, nontender, nondistended EXTREMITIES: Normal range of motion. 1+ edema bilateral lower extremities. Patient elicits tenderness of the joints with no deformities noted SKIN: Warm, dry, no rash. NEURO: No focal deficits. Alert and oriented x3. Cranial nerves II through XII grossly intact. Neurovascularly intact. Capillary refill less than 2 seconds PSYCH: Normal mood and affect. Course Course Emergency Course: Patient will be brought in for sickle cell pain crisis primary complaints are lower leg pain and low back pain patient currently denying chest pain or shortness of breath in the room has been given narcotics and fluids will be placed in hospital for pain management and further evaluation of her sym
[2020-02-14 16:49] LABS: Basophils Percent Auto 0.4 % (0.2-1.2); Eosinophils Absolute Auto 0.6 K/mm3 (0-0.3); Eosinophils Percent Auto 6.2 % (0-4.4); Hemoglobin 7.8 g/dL (12.0-15.0); Immature Granulocyte Absolute 0.04 K/mm3 (0.00-0.031); Immature Granulocyte Percent A 0.4 % (0-0.5); Immature Reticulocyte Fraction 33.1 % (3.0-15.9); Lymphocytes Absolute Auto 2.59 K/mm3 (0.9-3.2); Lymphocytes Percent Auto 26.5 % (18.3-44.2); Mean Corpuscular HGB Conc 32.5 g/dl (32-36); Mean Corpuscular Hemoglobin 23.4 pg (26-34); Mean Corpuscular Volume 72.1 fl (80-100); Mean Platelet Volume 9.6 fl (7.4-10.4); Monocytes Absolute Auto 0.9 K/mm3 (0.1-0.6); Monocytes Percent Auto 9.5 % (2.6-8.5); Neutrophils Absolute Auto 5.6 K/mm3 (1.3-6.7); Nucleated Red Blood Cells Absolute Auto 0.2 K/mm3 (0.0-0.012); Nucleated Red Blood Cells Perc 1.9 % (0.0-0.2); Platelet Count Result 475 k/mm3 (150-375); Red Blood Count 3.33 M/mm3 (4.2-5.4); Red Cell Distribution Width 21.3 % (11.5-14.5); Reticulocyte Hemoglobin Conten 25.7 pg (28.2-35.7); Reticulocyte Percent 4.86 % (0.7-4.3); Reticulocytes Absolute 0.16 B/L (32.2-175.7); White Blood Count 9.8 K/mm3 (4.5-10.0)
[2020-02-14 16:49] LABS: Add Urine Microscopic? YES; Appearance Urine Clear (Clear); Bacteria Urine Trace /hpf; Bilirubin Urine Negative (Negative); Blood Urine Negative (Negative); Color Urine Yellow (Yellow); Glucose Urine UA Negative (Negative); Ketones Urine Negative (Negative); Leukocyte Esterase Ur Negative LEU/UL (Negative); Nitrate Urine Negative (Negative); Protein Urine Negative (Negative); Specific Grav Ur 1.011 (1.001-1.035); Squamous Epithelial Cell Urine Few /hpf (Few); WBC Urine 0-3 /hpf
[2020-02-14 16:58] LABS: Alanine Aminotransferase 27 U/L (4-35); Albumin Level 4.2 g/dL (3.5-5.1); Alkaline Phosphatase 188 U/L (38-126); Anion Gap 4 mmol/L (8-16); Aspartate Amino Transferase 56 U/L (14-36); Bilirubin,Total 1.7 mg/dL (0.2-1.3); Blood Urea Nitrogen 8 mg/dL (7-17); Calcium 9.2 mg/dL (8.4-10.2); Carbon Dioxide 31 mmol/L (22-30); Chloride 101 mmol/L (98-107); Estimated CRCL calculation 125 ml/min; Estimated Glomerular Filt Rate > 60; Glucose 84 mg/dL (65-105); Lactate Dehydrogenase 670 U/L (313-618); Potassium 4.1 mmol/L (3.4-5.0); Sodium 136 mmol/L (137-145)
[2020-02-14 17:53] VITALS: BP 166/93; PULSE 98; RESP 18; O2SAT 99
[2020-02-14] MEDS: diphenhydrAMINE HCl INJ 50 MG/ML VIAL 25 MG IV PUSH (18:30)
[2020-02-14] MEDS: HYDROmorphone HCL INJ (*CRX) 1 MG/ML SYR IV PUSH (18:30)
[2020-02-14 20:25] VITALS: BP 152/95; PULSE 76; RESP 18
[2020-02-14 21:12] LABS: NT Pro B Type Natriuretic Pept 112 PG/ML (5-100)
[2020-02-14 21:35] VITALS: BP 141/85; PULSE 78; RESP 18; TEMP 36.7; O2SAT 99; BMI 35.2
[2020-02-14] MEDS: FAMOTIDINE 20 MG/2 ML VIAL IV PUSH (21:43)
[2020-02-14] MEDS: HYDROmorphone HCL INJ (*CRX) 2 MG/ML VIAL 3 MG IV PUSH ×2 (21:43→23:56)
--- NOTE | 2020-02-14 21:53 | ADMGEN ---
This patient, Natividad Lowe, was admitted to [facility] Surg Room 321-01. Patient/family oriented to hospital policies and general routines including ID bracelet, bed and alarms, visiting hours, pain management, procedures, bathroom and other care routines, personal items, smoking policy, room service/diet, and visiting hours. Information on how to activate the Rapid Response Team has been discussed. Patient/Family are encouraged to report perceived risks to care and to ask questions if they do not understand what they are told or what they should do.
[2020-02-15] VITALS: BP 143/88; PULSE 77; RESP 18; TEMP 36.4; O2SAT 100
--- NOTE | 2020-02-15 01:47 | PC.NURSE ---
Daylight Savings Time For Daylight Savings Time Ending in the Fall - Clocks are moved back. For Daylight Savings Time Beginning in the Spring - Clocks are moved ahead. For [facility], the time of change occurs at 0200 hrs. Time is taken from the gaming surveillance observer. This entry on the patient's chart recognizes the change in time reflected during documentation. Example: 2 entries for vital signs may be charted for 0200 hrs.
[2020-02-15] MEDS: HYDROmorphone HCL INJ (*CRX) 2 MG/ML VIAL 3 MG IV PUSH ×7 (02:28→21:01)
[2020-02-15 04:00] VITALS: BP 129/75; PULSE 77; RESP 18; TEMP 36.4; O2SAT 96
[2020-02-15 05:48] LABS: Basophils Percent Auto 0.6 % (0.2-1.2); Eosinophils Absolute Auto 0.8 K/mm3 (0-0.3); Eosinophils Percent Auto 11.6 % (0-4.4); Hematocrit 22.7 % (37.0-47.0); Hemoglobin 7.4 g/dL (12.0-15.0); Immature Granulocyte Absolute 0.03 K/mm3 (0.00-0.031); Immature Granulocyte Percent A 0.4 % (0-0.5); Lymphocytes Absolute Auto 2.45 K/mm3 (0.9-3.2); Lymphocytes Percent Auto 35.1 % (18.3-44.2); Mean Corpuscular HGB Conc 32.6 g/dl (32-36); Mean Corpuscular Hemoglobin 23.5 pg (26-34); Mean Corpuscular Volume 72.1 fl (80-100); Mean Platelet Volume 9.5 fl (7.4-10.4); Monocytes Absolute Auto 0.9 K/mm3 (0.1-0.6); Monocytes Percent Auto 12.8 % (2.6-8.5); Neutrophils Absolute Auto 2.8 K/mm3 (1.3-6.7); Neutrophils Percent Auto 39.5 % (45.5-73.1); Nucleated Red Blood Cells Absolute Auto 0.2 K/mm3 (0.0-0.012); Nucleated Red Blood Cells Perc 2.3 % (0.0-0.2); Platelet Count Result 442 k/mm3 (150-375); Red Blood Count 3.15 M/mm3 (4.2-5.4); Red Cell Distribution Width 21.2 % (11.5-14.5)
[2020-02-15 06:25] LABS: Anion Gap 6 mmol/L (8-16); Blood Urea Nitrogen 6 mg/dL (7-17); Calcium 9.1 mg/dL (8.4-10.2); Carbon Dioxide 31 mmol/L (22-30); Chloride 102 mmol/L (98-107); Estimated CRCL calculation 151 ml/min; Estimated Glomerular Filt Rate > 60; Glucose 83 mg/dL (65-105); Sodium 139 mmol/L (137-145)
[2020-02-15 08:00] VITALS: BP 136/84; PULSE 75; PULSE 78; RESP 18; TEMP 36.8; O2SAT 96; O2SAT 99
[2020-02-15] MEDS: ENOXAPARIN 40 MG/0.4 ML SYRINGE SUB-Q (09:04)
[2020-02-15] MEDS: FAMOTIDINE 20 MG/2 ML VIAL IV PUSH ×2 (09:04→21:02)
[2020-02-15] MEDS: HYDROXYUREA (*CHEMO) 500 MG CAPSULE 1000 MG PO (09:04)
[2020-02-15] MEDS: FOLIC ACID 1 MG TABLET PO (09:04)
[2020-02-15] MEDS: diphenhydrAMINE HCl CAP 25 MG CAPSULE 50 MG PO ×2 (09:24→17:50)
--- NOTE | 2020-02-15 11:39 | PM.IMHP ---
H&P: HPI History of Present Illness Date/Time: 02/15/20 11:39 Chief complaint: sickle cell pain crisis Narrative: Natividad Lowe is a 40 year old female admitted through ED yesterday with left shoulder pain, bilateral lower leg pain and lumbar back pain. She has a history of sickle cell disease with past crisis reoccurrences. She stated that both her brothers last month. She stated that they had different fathers than her and did not inherit Sickle Cell. She has been taking care of her nieces and nephews and has an 8-year-old and 12-year-old at home, who is currently being watched by her mother. She follows with heme-onc at [facility] and has been compliant with her visits and home medications. She was admitted with sickle cell crisis and lower extremity edema. Natividad was resting in bed comfortably today. She is having some generalized aches and soreness and could not give me a specific location of pain, other than her legs. Her left shoulder pain has also resolved. She did deny chest pain and shortness of breath. She stated her primary discomfort is her legs which both seem to be itching and slightly swollen to her. She did not elicit any pain to palpation an either of her legs or with movement. She denies any stabbing or sharp pain to her legs. There is no warmth or redness. She understands importance of continued movement as she understands that she is at risk for blood clots and DVTs. Patient denies any URI symptoms or sick contacts. She is receiving 3 mg of Dilaudid every 3 hours p.r.n., oral Benadryl p.r.n. for pain management and further control of her symptoms. Have also added Jalen hose stockings, elevation of lower extremities, Claritin, and Pepcid. We will continue her home meds of hydroxyurea oral. Her sinus tach with heart rate in the 100s has improved with heart rate in the 70s that is regular at this time, tolerating room air well, and ambulating about her room ad kwame. She is in no acute distress at this time. Review of Systems Review of Systems: All systems reviewed & are unremarkable except as noted in HPI and below Constitutional: Constitutional: Reports body ache(s), Denies excessive sweating, Denies headache(s), Denies increased appetite, Denies snoring and Denies weight gain Eyes: Eyes: Denies exophthalmos, Denies diplopia, Denies floaters and Denies loss of peripheral vision ENT: Denies facial pain, Denies headache(s), Denies odynophagia and Denies tinnitus Cardiovascular: Cardiovascular: Denies chest pain, Denies chest pain at rest, Denies chest pain with activity, Denies pedal edema, Denies leg ulcers, Reports leg edema (mild and generalized, no redness/warmth/or localized pain), Denies dyspnea, Denies dyspnea on exertion, Denies orthopnea and Denies slow heart rate Respiratory: Respiratory: Denies chest congestion, Denies cough, Denies hemoptysis and Denies snoring Gastrointestinal: Gastrointestinal: Reports as per HPI, Denies abdominal pain, Denies coffee ground emesis and Denies odynophagia Musculoskeletal: Musculoskeletal: Reports as per HPI, Reports myalgias, Reports arthralgias, Reports joint swelling and Reports stiffness Neurologic: Reports as per HPI, Reports Normal hearing present, Denies Abnormal speech present, Denies confusion and Denies headache(s) Psychiatric: Psychiatric: Reports as per HPI Endocrine: Endocrine: Denies excessive sweating Allergic/Immunologic: Allergic/Immunologic: Denies urticaria, Denies lip swelling, Denies seasonal rhinorrhea, Denies throat swelling, Denies tongue swelling and Denies wheezing PMFSH Past Medical History Medical History Asthma Avascular necrosis of bone of hip Avascular necrosis of bone of shoulder Essential hypertension Moderate pulmonary arterial systolic hypertension Noted on echocardiogram from June 2015 with a RVSP of 53 normal ejection fraction is 64% Sickle cell disease Surgical Hi
[2020-02-15 12:00] VITALS: BP 117/68; PULSE 75; RESP 18; TEMP 36.5; O2SAT 99
[2020-02-15 13:10] LABS: SARS-CoV-2 RNA PCR Negative
--- NOTE | 2020-02-15 13:51 | PC.NURSE ---
Notified Sarah N.P. of negative Covid results.
--- NOTE | 2020-02-15 13:52 | PC.NURSE ---
Ok to dc isolation.
[2020-02-15 22:00] VITALS: BP 152/89; PULSE 90; RESP 18; TEMP 36.1; O2SAT 100
[2020-02-16] VITALS: BP 149/87; PULSE 79; RESP 18; TEMP 36.3; O2SAT 99
[2020-02-16] MEDS: HYDROmorphone HCL INJ (*CRX) 2 MG/ML VIAL 3 MG IV PUSH ×9 (00:10→23:09)
[2020-02-16] MEDS: diphenhydrAMINE HCl INJ 50 MG/ML VIAL IV PUSH ×4 (00:11→22:30)
[2020-02-16 06:00] VITALS: BP 138/85; PULSE 75; RESP 18; TEMP 36.1; O2SAT 98
[2020-02-16 06:25] LABS: Basophils Absolute Auto 0.1 K/mm3 (0.0-0.1); Basophils Percent Auto 0.6 % (0.2-1.2); Eosinophils Absolute Auto 0.7 K/mm3 (0-0.3); Hematocrit 22.9 % (37.0-47.0); Hemoglobin 7.6 g/dL (12.0-15.0); Immature Granulocyte Absolute 0.06 K/mm3 (0.00-0.031); Immature Granulocyte Percent A 0.7 % (0-0.5); Immature Reticulocyte Fraction 38.2 % (3.0-15.9); Lymphocytes Absolute Auto 2.27 K/mm3 (0.9-3.2); Mean Corpuscular HGB Conc 33.2 g/dl (32-36); Mean Corpuscular Hemoglobin 23.3 pg (26-34); Mean Corpuscular Volume 70.2 fl (80-100); Mean Platelet Volume 9.7 fl (7.4-10.4); Monocytes Absolute Auto 1.1 K/mm3 (0.1-0.6); Monocytes Percent Auto 13.3 % (2.6-8.5); Neutrophils Percent Auto 49.4 % (45.5-73.1); Nucleated Red Blood Cells Absolute Auto 0.2 K/mm3 (0.0-0.012); Nucleated Red Blood Cells Perc 1.9 % (0.0-0.2); Platelet Count Result 436 k/mm3 (150-375); Red Blood Count 3.26 M/mm3 (4.2-5.4); Red Cell Distribution Width 20.9 % (11.5-14.5); Reticulocyte Hemoglobin Conten 24.9 pg (28.2-35.7); Reticulocyte Percent 3.47 % (0.7-4.3); Reticulocytes Absolute 0.11 B/L (32.2-175.7); White Blood Count 8.1 K/mm3 (4.5-10.0)
[2020-02-16 06:35] LABS: Anion Gap 5 mmol/L (8-16); Blood Urea Nitrogen 9 mg/dL (7-17); Calcium 9.1 mg/dL (8.4-10.2); Carbon Dioxide 32 mmol/L (22-30); Chloride 102 mmol/L (98-107); Estimated CRCL calculation 128 ml/min; Estimated Glomerular Filt Rate > 60; Glucose 77 mg/dL (65-105); Potassium 3.9 mmol/L (3.4-5.0); Sodium 139 mmol/L (137-145)
[2020-02-16] MEDS: ENOXAPARIN 40 MG/0.4 ML SYRINGE SUB-Q (08:14)
[2020-02-16] MEDS: HYDROXYUREA (*CHEMO) 500 MG CAPSULE 1000 MG PO (08:14)
[2020-02-16] MEDS: FOLIC ACID 1 MG TABLET PO (08:14)
[2020-02-16 10:00] VITALS: BP 125/67; PULSE 77; RESP 20; TEMP 36.2; O2SAT 99
[2020-02-16] MEDS: CENTRAL LINE FLUSH 10 ML IV PUSH ×2 (11:29→22:00)
[2020-02-16 14:00] VITALS: BP 123/79; PULSE 80; RESP 18; TEMP 36.7; O2SAT 100
[2020-02-16 18:00] VITALS: BP 137/77; PULSE 74; RESP 20; TEMP 36.1; O2SAT 100
--- NOTE | 2020-02-16 18:24 | PM.IMPN ---
Progress Note: A&P Assessment and Plan (1) Lower extremity edema: Code(s): R60.0 - Localized edema Status: Acute Assessment and Plan: admitted with sickle cell crisis and lower extremity edema. generalized aches and soreness plus right knee deny chest pain and shortness of breath. legs which both seem to be itchy and slightly swollen 1st day, then more swollen with localized swelling to knee on 2nd day. receiving 3 mg of Dilaudid every 3 hours p.r.n., oral Benadryl p.r.n. for pain management and further control of her symptoms. added Jalen hose stockings, SCDs, elevation of lower extremities, Claritin, and Pepcid. continue her home meds of hydroxyurea oral. sinus tach with heart rate in the 100s has improved with heart rate now in the 70s that is regular at this time tolerating room air well ambulating about her room ad kwame no acute distress at this time. (2) DVT prophylaxis: Code(s): Z29.9 - Encounter for prophylactic measures, unspecified Status: Acute Assessment and Plan: Due to her sickle cell crisis will elevate lower extremities hemodynamically stable at this time, on room air, no shortness of breath or chest pain mechanical DVT prophylaxis ordered Jalen hose stockings and SCDs ordered BLE Venous Dopplers/US monitor for any new or concerning signs or symptoms (3) Sickle cell pain crisis: Code(s): D57.00 - Hb-SS disease with crisis, unspecified Status: Acute Assessment and Plan: has had recurrent episodes of sickle cell crisis, in the past that have involved hospitalization 2 brothers in the 1-2 month and she is caring for their 2 young children - may be related to emotional stress Has established care with heme-onc at [facility] has been compliant with her visits and home medications. admitted with sickle cell crisis and lower extremity edema. osteonecrosis findings on Knee x ray today, Review XRays of other painful joints, consulted Nadine Garland receiving 3 mg of Dilaudid every 3 hours p.r.n., oral Benadryl p.r.n. for pain management and further control of her symptoms. added Jalen hose stockings, SCDs, elevation of lower extremities, Claritin, and Pepcid. continue her home meds of hydroxyurea oral. sinus tach with heart rate in the 100s has improved with heart rate now in the 70s that is regular at this time tolerating room air well ambulating about her room ad kwame no acute distress at this time. Venous Doppler US results to be reviewed. (4) Avascular necrosis: Code(s): M87.00 - Idiopathic aseptic necrosis of unspecified bone Status: Acute Assessment and Plan: Leg swelling, left Hip pain and right knee pain with a Sickle cell crisis. concern for AVN ordered xrays of bilateral hip/pelvis today, as well as XR Knee left. ordered Venous dopplers US avoid using ice, ordered Kpack as she wanted to try warmth. avoided Ketorolac ordered IV tylenol consider RBC transfusion if pain not improved November Left Hip xray: Subtle sclerosis of the left femoral head, suspicious for osteonecrosis. There are surgical clips overlying the right hip. No acute fracture or traumatic malalignment. Pelvic rings are intact. 1: Subtle asymmetric sclerosis left femoral head, suspicious for osteonecrosis. 2: No acute fracture. Today's XR knee RT 3V FINDINGS: Bone alignment is normal. No fracture. There are patchy areas of sclerosis in the distal femur and proximal tibia, consistent with osteonecrosis. Joint spaces are normal. No knee joint effusion. 1. 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 NSAID pain control IV hydration , boluses received, stopped IV hydration consult orthopedic surgeon , but start conservative treatment now to prolong any surgical interventions consider reducing weight bearing to affected limb by using crutches or wheelchair prolonged PT to maintain ROM of hip
--- NOTE | 2020-02-16 19:04 | PC.NURSE ---
Spoke to Dr. Henderson at 1900 to consult him per Manju Jenkins's oders. Dr. Henderson said that he can not treat sickel cell crisis, and recommends the patient be transfered to a facily that is more familiar with sickel cell.
[2020-02-16] MEDS: FAMOTIDINE 20 MG/2 ML VIAL IV PUSH (20:08)
[2020-02-16 22:00] VITALS: BP 150/56; PULSE 78; RESP 18; TEMP 36.1; O2SAT 100
[2020-02-17 02:00] VITALS: BP 137/75; PULSE 80; RESP 18; TEMP 36.6; O2SAT 100
[2020-02-17] MEDS: HYDROmorphone HCL INJ (*CRX) 2 MG/ML VIAL 3 MG IV PUSH ×4 (02:08→11:01)
[2020-02-17] MEDS: diphenhydrAMINE HCl INJ 50 MG/ML VIAL IV PUSH ×2 (04:53→11:01)
[2020-02-17] MEDS: CENTRAL LINE FLUSH 10 ML IV PUSH (05:32)
[2020-02-17 06:00] VITALS: BP 143/83; PULSE 79; RESP 20; TEMP 36.6; O2SAT 100
[2020-02-17 06:18] LABS: Basophils Percent Auto 0.4 % (0.2-1.2); Eosinophils Absolute Auto 0.7 K/mm3 (0-0.3); Eosinophils Percent Auto 7.7 % (0-4.4); Hematocrit 24.5 % (37.0-47.0); Immature Granulocyte Absolute 0.06 K/mm3 (0.00-0.031); Immature Granulocyte Percent A 0.6 % (0-0.5); Immature Reticulocyte Fraction 44.5 % (3.0-15.9); Lymphocytes Absolute Auto 2.31 K/mm3 (0.9-3.2); Lymphocytes Percent Auto 24.8 % (18.3-44.2); Mean Corpuscular HGB Conc 32.7 g/dl (32-36); Mean Corpuscular Hemoglobin 23.5 pg (26-34); Mean Corpuscular Volume 71.8 fl (80-100); Mean Platelet Volume 9.7 fl (7.4-10.4); Monocytes Absolute Auto 1.2 K/mm3 (0.1-0.6); Monocytes Percent Auto 12.9 % (2.6-8.5); Neutrophils Percent Auto 53.6 % (45.5-73.1); Nucleated Red Blood Cells Absolute Auto 0.2 K/mm3 (0.0-0.012); Nucleated Red Blood Cells Perc 1.9 % (0.0-0.2); Platelet Count Result 401 k/mm3 (150-375); Red Blood Count 3.41 M/mm3 (4.2-5.4); Reticulocyte Hemoglobin Conten 25.3 pg (28.2-35.7); Reticulocyte Percent 4.49 % (0.7-4.3); Reticulocytes Absolute 0.15 B/L (32.2-175.7); White Blood Count 9.3 K/mm3 (4.5-10.0)
[2020-02-17 06:36] LABS: Anion Gap 10 mmol/L (8-16); Blood Urea Nitrogen 8 mg/dL (7-17); Calcium 9.1 mg/dL (8.4-10.2); Carbon Dioxide 30 mmol/L (22-30); Chloride 101 mmol/L (98-107); Estimated CRCL calculation 128 ml/min; Estimated Glomerular Filt Rate > 60; Glucose 99 mg/dL (65-105); Phosphorus 4.2 mg/dL (2.5-4.5); Potassium 3.6 mmol/L (3.4-5.0); Sodium 141 mmol/L (137-145)
[2020-02-17] MEDS: ENOXAPARIN 40 MG/0.4 ML SYRINGE SUB-Q (08:00)
[2020-02-17] MEDS: FOLIC ACID 1 MG TABLET PO (08:00)
[2020-02-17] MEDS: HYDROXYUREA (*CHEMO) 500 MG CAPSULE 1000 MG PO (08:00)
[2020-02-17] MEDS: LORATADINE 10 MG TABLET PO (08:00)
[2020-02-17] MEDS: FAMOTIDINE 20 MG/2 ML VIAL IV PUSH (11:01)
--- NOTE | 2020-02-17 11:53 | PM.DS ---
DS: Admitting Diagnosis Admitting Diagnosis Admitting Diagnosis: sickle cell pain crisis DS: Discharge Diagnosis Discharge Diagnosis (1) Sickle cell pain crisis: Code(s): D57.00 - Hb-SS disease with crisis, unspecified Status: Acute Assessment and Plan: Discharge Summary (Date of service 02/17/20): Ms. Lowe is a 40 y.o. female with PMH significant for sickle cell disease who presented to the emergency department 02/14/20 for the evaluation of increasing pain. She noted pain in the right shoulder, bilateral lower legs, and lower back which was consistent with her prior episodes of sickle cell pain crisis. She noted increased emotional stress in the past 1-2 months due to losing two brothers. She reported compliance with her home medication regimen. She is established with Dr. Renee with hematology at [facility] and follows with him regularly. She was admitted to the hospitalist service for pain control and treated with IV dilaudid. She had no clinical evidence of precipitating infection. She was afebrile with normal WBC. She was tested for COVID-19 which was negative. Plain films of the hips, pelvis, and knees were ordered with concern for osteonecrosis. Orthopedic surgery was consulted but they do not see sickle cell patients. I called Dr. Ovalle's office, an orthopedic surgeon at [facility] who does see sickle cell patients with osteonecrosis, to place a referral. His office requested that we send her records to their office and a records release was obtained prior to discharge to facilitate the referral. Venous doppler US was performed and negative for DVT. She reported that her pain was much better today. Hb improved 8.0 and Hct to 24.5. She stated that she would not stay in the hospital any longer as she had things she needed to take care of at home, pain was controlled, and her ride was on the way to pick her up. She requested to be discharged home and did not want to wait to see Dr. Garland who was consulted. She stated that she had follow-up established with Dr. Renee for Sunday02/20/20 and noted that she receives blood transfusions regularly every 4 weeks. I advised that it was imperative for her to see Dr. Renee as scheduled 02/20/20 and the long-term risks of sickle cell disease were discussed. I discussed reasons to return to the emergency department immediately and she verbalized understanding. Repeat CBC and CMP were ordered for Sunday02/20/20 for follow-up. (2) Avascular necrosis: Code(s): M87.00 - Idiopathic aseptic necrosis of unspecified bone Status: Acute Assessment and Plan: Secondary to sickle cell disease. Plain films of the hips, pelvis, and knees were performed and show osteonecrosis. Supportive care was continued with analgesics as needed and Kpad. The findings were discussed with the patient at length and she verbalized understanding with the need for orthopedic surgery follow-up after discharge. I discussed the importance of close hematology follow-up to keep her sickle cell disease under control. She is established with Dr. Renee, real estate closing coordinator at [facility]. I called Dr. Ovalle's office, an orthopedic surgeon from [facility] specializing in avascular necrosis. They asked that her information be faxed to their office as a referral and they would reach out to her to schedule the appointment. (3) Lower extremity edema: Code(s): R60.0 - Localized edema Status: Resolved Assessment and Plan: She had lower extremity edema initially. Venous doppler US was performed and negative for DVT. LIAM hose were applied and swelling improved significantly. DS: Summary Hospital Course Reason for hospitalization: Sickle cell pain crisis Hospital Course: As above. Status at Discharge Functional status at discharge: independent ambulation Overall status at discharge: patient is back to baseline Time Spent with Patient Time attestation: Total time spent providing and/or coordinating discharge services: 40 mi
[2020-02-17] MEDS: HEPARIN SOD FLUSH 500 UNITS/5 ML SYRINGE IV PUSH (12:08)
== END 2020-02-17 12:17 | disposition home or self-care (01) | DRG 662 ==
LOC: ANHED 20:24 → ANH3MEDSUR 20:54
PROVIDERS: Emergency Medicine Emergency Medical Services; Nurse Practitioner; Admitting Provider Internal Medicine; Emergency Provider Emergency Medicine; Visit Provider Physician Assistant
DX: D57.00 Hb-SS disease with crisis, unspecified (principal); M90.5 Osteonecrosis in diseases classified elsewhere; Z20.828 Contact with and (suspected) exposure to other viral communicable diseases; I10 Essential (primary) hypertension; J45.909 Unspecified asthma, uncomplicated
CPT/HCPCS: 36415; 71045; 73521; 73562; 80048; 80053; 81001; 81025; 83615; 83735; 83880; 84100; 85025; 85046; 87040; 87635; 93005; 93970; 96361; 96372; 96374; 96375; 96376; 99285; A9270; C9803; G0378; J1170; J1200; J1642; J1650; J7030; J7120; U0003

== ENCOUNTER 2020-03-03 02:50 | Emergency (ER) | payer MEDICAID, SELFPAY ==
--- NOTE | ~2020-03-03 | XR_ITS ---
EXAMINATION: XR hip BI 2V w AP pelvis DATE: 03/03/2020 04:02 INDICATION: Hip pain. Sickle cell disease. TECHNIQUE: An anteroposterior view of the pelvis and 2 views of each hip were obtained. COMPARISON: Pelvis and hip radiographs 02/16/2020 FINDINGS: Bone alignment is normal. No fracture. There is sclerosis in right femoral neck and diaphys is and left femoral head and diaphysis, consistent with osteonecrosis. There is mild osteoarthritis o f the hips. Surgical clips overlie the pelvis and right hip. IMPRESSION: 1. 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 2. Mild osteoarthritis of the hips. Reviewed, dictated and finalized at location A. S NOVELTY MAKER IMPRESSION: 1. Stable sclerosis in the femora, consistent with osteonecrosis from sickle ce ll disease. 2. Mild osteoarthritis of the hips.
--- NOTE | ~2020-03-03 | XR_ITS ---
EXAMINATION: XR chest 1V DATE: 03/03/2020 04:02 INDICATION: Sickle cell disease. TECHNIQUE: A single frontal view of the chest was obtained. COMPARISON: Chest single view 02/14/2020, 09/11/2019 FINDINGS: There are mild airspace opacities in the mid and lower lung zones. No pleural effusion or p neumothorax. Cardiomegaly is noted. There is a right internal jugular port with tip at superior cavoa trial junction. Surgical clips in the right upper quadrant are likely from cholecystectomy. There is chronic sclerosis in left humeral head, consistent with osteonecrosis. IMPRESSION: 1. Chronic mild airspace opacities in the mid and lower lung zones, likely sickle cell chronic lung d isease. 2. Cardiomegaly. Reviewed, dictated and finalized at location A. EATION ATTENDANT SUPERVISOR IMPRESSION: 1. Chronic mild airspace opacities in the mid and lower lung zones, likely sick le cell chronic lung disease. 2. Cardiomegaly.
--- NOTE | ~2020-03-03 | XR_ITS ---
EXAMINATION: XR lumbar spine 2-3V DATE: 03/03/2020 04:02 INDICATION: Low back pain. Sickle cell disease. TECHNIQUE: 3 views of lumbar spine were obtained. COMPARISON: Lumbar spine radiographs 12/08/2019 FINDINGS: Bone alignment is normal. Vertebral body heights and intervertebral disc heights are normal . The facet joints are unremarkable. Surgical clips in the right upper quadrant are likely from dutch cystectomy. IMPRESSION: 1. Normal lumbar spine. Reviewed, dictated and finalized at location A. UATION ANALYST IMPRESSION: 1. Normal lumbar spine.
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
[2020-03-03 02:48] VITALS: BP 149/88; PULSE 110; RESP 14; TEMP 36.9; O2SAT 95
[2020-03-03] MEDS: SODIUM CHLORIDE 0.9% IV 1,000 ML 999 ML IV CONT (03:30)
[2020-03-03] MEDS: HYDROmorphone HCL INJ (*CRX) 1 MG/ML SYR 2 MG IV PUSH ×2 (03:30→04:25)
[2020-03-03 03:32] LABS: Basophils Percent Auto 0.5 % (0.2-1.2); Eosinophils Absolute Auto 0.1 K/mm3 (0-0.3); Eosinophils Percent Auto 1.6 % (0-4.4); Hematocrit 27.7 % (37.0-47.0); Immature Granulocyte Absolute 0.03 K/mm3 (0.00-0.031); Immature Granulocyte Percent A 0.4 % (0-0.5); Immature Reticulocyte Fraction 28.1 % (3.0-15.9); Lymphocytes Absolute Auto 3.09 K/mm3 (0.9-3.2); Lymphocytes Percent Auto 41.9 % (18.3-44.2); Mean Corpuscular HGB Conc 32.5 g/dl (32-36); Mean Corpuscular Hemoglobin 23.9 pg (26-34); Mean Corpuscular Volume 73.5 fl (80-100); Mean Platelet Volume 9.6 fl (7.4-10.4); Monocytes Absolute Auto 1.1 K/mm3 (0.1-0.6); Monocytes Percent Auto 15.2 % (2.6-8.5); Neutrophils Percent Auto 40.4 % (45.5-73.1); Nucleated Red Blood Cells Absolute Auto 0.2 K/mm3 (0.0-0.012); Platelet Count Result 388 k/mm3 (150-375); Red Blood Count 3.77 M/mm3 (4.2-5.4); Red Cell Distribution Width 23.4 % (11.5-14.5); Reticulocyte Hemoglobin Conten 25.7 pg (28.2-35.7); Reticulocyte Percent 5.09 % (0.7-4.3); Reticulocytes Absolute 0.19 B/L (32.2-175.7); White Blood Count 7.4 K/mm3 (4.5-10.0)
[2020-03-03] MEDS: diphenhydrAMINE HCl INJ 50 MG/ML VIAL 25 MG IV PUSH (03:40)
[2020-03-03 03:54] LABS: Alanine Aminotransferase 58 U/L (4-35); Albumin Level 4.5 g/dL (3.5-5.1); Alkaline Phosphatase 245 U/L (38-126); Anion Gap 8 mmol/L (8-16); Aspartate Amino Transferase 90 U/L (14-36); Bilirubin,Total 2.2 mg/dL (0.2-1.3); Blood Urea Nitrogen 10 mg/dL (7-17); Calcium 9.2 mg/dL (8.4-10.2); Carbon Dioxide 29 mmol/L (22-30); Chloride 104 mmol/L (98-107); Estimated CRCL calculation 125 ml/min; Estimated Glomerular Filt Rate > 60; Glucose 84 mg/dL (65-105); Potassium 3.7 mmol/L (3.4-5.0); Sodium 141 mmol/L (137-145)
[2020-03-03 04:00] VITALS: TEMP 36.9
[2020-03-03 04:05] LABS: Lactate Dehydrogenase 757 U/L (313-618)
[2020-03-03 04:11] VITALS: BP 156/87; PULSE 65; RESP 18; O2SAT 99
[2020-03-03 04:55] VITALS: TEMP 36.7
[2020-03-03] MEDS: HYDROmorphone HCL INJ (*CRX) 1 MG/ML SYR IV PUSH (05:06)
--- NOTE | 2020-03-03 05:17 | PC.NURSE ---
Heparin flush used to de-access port.
[2020-03-03 05:18] VITALS: BP 160/76; PULSE 76; RESP 18; TEMP 36.7; O2SAT 99
[2020-03-03 05:22] VITALS: TEMP 36.7
== END 2020-03-03 05:23 | disposition home or self-care (01) ==
PROVIDERS: Emergency Provider Emergency Medicine
DX: D57.00 Hb-SS disease with crisis, unspecified (principal); J45.909 Unspecified asthma, uncomplicated; I10 Essential (primary) hypertension
CPT/HCPCS: 36415; 71045; 72100; 73521; 80053; 83615; 85025; 85046; 96361; 96374; 96375; 96376; 99284; J1170; J1200; J7030

== ENCOUNTER 2020-05-15 14:19 | Emergency (ER) | payer SELFPAY ==
--- NOTE | ~2020-05-15 | XR_ITS ---
XR chest 1V portable DATE: 05/15/2020 15:26 INDICATION: Low back pain. Sickle cell. TECHNIQUE: Portable AP chest on 05/15/2020 1524 hours COMPARISON: 03/03/2020 PA chest FINDINGS: Right Port-A-Cath catheter tip near superior cavoatrial junction. Mild mid and lower lung airspace opacities are again noted; little interval change since 03/03/2020. Heart size appears mildly enlarged. No pleural effusion or pulmonary vascular congestion or pneumotho rax. There is evidence of infarct of the left humeral head. IMPRESSION: No significant change since 03/03/2020 Reviewed, dictated and finalized at location A. GRADING SUPERVISOR
[2020-05-15 14:22] VITALS: BP 152/98; PULSE 105; RESP 16; TEMP 36.6; O2SAT 98
--- NOTE | 2020-05-15 15:15 | ED.GENADULT ---
HPI - General Adult General Chief complaint: Back Pain/Injury <Myles Arango PA-C - Last Filed: 05/15/20 21:14> Stated complaint: lower back pain <Myles Arango PA-C - Last Filed: 05/15/20 21:14> Time Seen by Provider: 05/15/20 14:45 <Myles Arango PA-C - Last Filed: 05/15/20 21:14> Source: patient <Myles Arango PA-C - Last Filed: 05/15/20 21:14> Mode of arrival: EMS <Myles Arango PA-C - Last Filed: 05/15/20 21:14> Limitations: no limitations <Myles Arango PA-C - Last Filed: 05/15/20 21:14> History of Present Illness HPI narrative: Patient presents with a history of sickle cell disease presenting via EMS for acute on chronic pain back pain. Patient states she has had acute lower back pain, hip pain over the past 2 days which has not been controlled with her oral medication hydromorphone and butrans patches at home. Patient follows with Dr. Renee at [facility] and states she has an appointment with him on May 20. She states she has talked with her provider over the phone and he stated when they meet they will review her medications as she has been on the same dosages for a long time and he believes that is why she is having more acute on chronic pain. Patient states her symptoms are also oftentimes triggered by cold, rain, and changes in weather. Patient denies fever, chills, cough, shortness of breath, or chest pain. No redness or swelling overlying the back or joints. No recent trauma or falls. Patient has been taking 8 mg of Dilaudid every 4 hours without any improvement in her symptoms. She also has 25mcg/hr butrans patches in place. Patient states she has a history of avascular necrosis and sickle cell pain in these areas and they are where her flares typically present. She reports having some pressure sensation with urination, but denies pain, vaginal bleeding or discharge. <Myles Arango PA-C - Last Filed: 05/15/20 21:14> Related Data Home medications: Home Medications Medication Instructions Recorded Confirmed folic acid 1 mg PO DAILY 09/11/19 02/14/20 hydromorphone 8 mg PO Q4H PRN 09/11/19 02/14/20 hydroxyurea (sickle cell) 1,000 mg PO DAILY 09/11/19 02/14/20 albuterol sulfate 2 puff INHALATION QID PRN 12/08/19 02/14/20 Benadryl 50 mg PO Q6H PRN 02/14/20 02/14/20 <Myles Arango PA-C - Last Filed: 05/15/20 21:14> Allergies/adverse reactions: Allergies Allergy/AdvReac Type Severity Reaction Status Date / Time ibuprofen Allergy Intermediate Hives Verified 02/14/20 21:54 Penicillins Allergy Intermediate Hives Verified 02/14/20 21:54 acetaminophen Allergy Mild Rash Verified 02/14/20 21:54 aspirin Allergy Unknown Hives / Verified 02/14/20 21:54 Red Face shellfish derived Allergy Unknown Hives Verified 02/14/20 21:54 <KERMIT Le Last Filed: 05/15/20 21:14> Review of Systems Review of Systems: Narrative: CONSTITUTIONAL: Denies fever, chills, or sweats. EYES: Denies visual changes, redness, or discharge. ENT: Denies rhinorrhea, congestion, sore throat, or otalgia. CARDIOVASCULAR: Denies chest pain, palpitations, or edema. RESPIRATORY: Denies cough or dyspnea. GASTROINTESTINAL: Denies abdominal pain, nausea, vomiting, or diarrhea. GENITOURINARY: Denies dysuria or hematuria. SKIN: Denies rash or itching. MUSCULOSKELETAL: Reports back pain and b/l leg pain NEUROLOGIC: Denies headache, numbness, dizziness, or weakness. PSYCHIATRIC: Denies anxiety or depression. <KERMIT Le Last Filed: 05/15/20 21:14> [facility] Past Medical History Medical History: Medical History (Updated 05/16/20 @ 00:00 by Background Daemon) Asthma Avascular necrosis of bone of hip Avascular necrosis of bone of shoulder Essential hypertension Moderate pulmonary arterial systolic hypertension Noted on echocardiogram from June 2015 with a RVSP of 53 normal ejection fraction is 64% Sickle cell disease <KERMIT Le
--- NOTE | 2020-05-15 15:15 | PC.NURSE ---
PT REPORTS HAVING HYSTERECTOMY. NO PREG TEST REQUIRED
[2020-05-15 15:29] LABS: Add Urine Microscopic? YES; Amorphous Sediment Urine Few; Appearance Urine Cloudy (Clear); Bacteria Urine Trace /hpf; Bilirubin Urine Negative (Negative); Blood Urine Negative (Negative); Color Urine Yellow (Yellow); Glucose Urine UA Negative (Negative); Ketones Urine Negative (Negative); Leukocyte Esterase Ur 3+ LEU/UL (Negative); Mucus Urine Rare /lpf; Nitrate Urine Negative (Negative); Protein Urine Negative (Negative); Specific Grav Ur 1.012 (1.001-1.035); Squamous Epithelial Cell Urine Many /hpf (Few); Urobilinogen Urine Negative mg/dL (<2.0); WBC Urine 16-20 /hpf
[2020-05-15 15:35] LABS: Basophils Absolute Auto 0.1 K/mm3 (0.0-0.1); Basophils Percent Auto 0.8 % (0.2-1.2); Eosinophils Absolute Auto 0.2 K/mm3 (0-0.3); Hemoglobin 8.9 g/dL (12.0-15.0); Immature Granulocyte Absolute 0.02 K/mm3 (0.00-0.031); Immature Granulocyte Percent A 0.3 % (0-0.5); Lymphocytes Absolute Auto 3.31 K/mm3 (0.9-3.2); Mean Corpuscular Hemoglobin 24.2 pg (26-34); Mean Corpuscular Volume 73.4 fl (80-100); Mean Platelet Volume 9.5 fl (7.4-10.4); Monocytes Percent Auto 12.7 % (2.6-8.5); Neutrophils Absolute Auto 3.2 K/mm3 (1.3-6.7); Neutrophils Percent Auto 41.2 % (45.5-73.1); Nucleated Red Blood Cells Absolute Auto 0.1 K/mm3 (0.0-0.012); Nucleated Red Blood Cells Perc 0.8 % (0.0-0.2); Platelet Count Result 515 k/mm3 (150-375); Red Blood Count 3.68 M/mm3 (4.2-5.4); Red Cell Distribution Width 22.5 % (11.5-14.5); Reticulocyte Hemoglobin Conten 26.3 pg (28.2-35.7); Reticulocyte Percent 2.88 % (0.7-4.3); Reticulocytes Absolute 0.11 B/L (32.2-175.7); White Blood Count 7.7 K/mm3 (4.5-10.0)
[2020-05-15] MEDS: HYDROmorphone HCL INJ (*CRX) 1 MG/ML SYR 2 MG IV PUSH ×2 (15:35→17:18)
[2020-05-15] MEDS: SODIUM CHLORIDE 0.9% IV 1,000 ML 999 ML IV CONT (15:35)
[2020-05-15 15:44] LABS: Ovalocytes 1+ (NORMAL); Platelet Estimate Increased (Adequate); Poikilocytosis 1+ (NORMAL); Sickle Cells 1+ (NORMAL); Target Cells 2+ (NORMAL)
[2020-05-15 15:45] VITALS: BP 147/92; PULSE 90; RESP 18; O2SAT 99
[2020-05-15 15:47] LABS: Amphetamine Screen Urine Negative (Negative); Barbiturate Screen Urine Negative (Negative); Benzodiazepines Screen Urine Negative (Negative); Cannabinoid Screen Urine Negative (Negative); Cocaine Screen Urine Negative (Negative); Methadone Screen Urine Negative (Negative); Opiate Screen Urine Positive (Negative); Phencyclidine Screen Urine Negative (Negative)
[2020-05-15 16:02] LABS: Alanine Aminotransferase 36 U/L (4-35); Albumin Level 4.7 g/dL (3.5-5.1); Alkaline Phosphatase 170 U/L (38-126); Anion Gap 4 mmol/L (8-16); Aspartate Amino Transferase 60 U/L (14-36); Bilirubin,Total 1.1 mg/dL (0.2-1.3); Blood Urea Nitrogen 10 mg/dL (7-17); Calcium 9.2 mg/dL (8.4-10.2); Carbon Dioxide 26 mmol/L (22-30); Chloride 104 mmol/L (98-107); Estimated CRCL calculation 128 ml/min; Estimated Glomerular Filt Rate > 60; Glucose 83 mg/dL (65-105); Potassium 3.7 mmol/L (3.4-5.0); Sodium 134 mmol/L (137-145)
[2020-05-15 16:18] LABS: Lactate Dehydrogenase 679 U/L (313-618)
[2020-05-15] MEDS: diphenhydrAMINE HCl INJ 50 MG/ML VIAL IV PUSH (17:18)
[2020-05-15] MEDS: KETOROLAC 30 MG/ML VIAL (*BKC) IV PUSH (17:56)
[2020-05-15 18:32] VITALS: BP 148/90; PULSE 95; RESP 18; O2SAT 99
[2020-05-15] MEDS: HEPARIN SOD FLUSH 500 UNITS/5 ML SYRINGE (18:52)
== END 2020-05-15 18:58 | disposition home or self-care (01) ==
PROVIDERS: Physician Assistant; Emergency Provider General Practice; PCP Family Medicine
DX: D57.00 Hb-SS disease with crisis, unspecified (principal); N39.0 Urinary tract infection, site not specified; J45.909 Unspecified asthma, uncomplicated; I10 Essential (primary) hypertension; I27.21 Secondary pulmonary arterial hypertension
CPT/HCPCS: 36415; 71045; 80053; 80307; 81001; 83615; 85025; 85046; 87086; 87088; 96361; 96374; 96375; 96376; 99284; J1170; J1200; J1885; J7030